=== PATIENT | female | born 1935 | race Caucasian/White ===

== ENCOUNTER 2019-05-03 10:04 | Inpatient (IN) | payer MEDICARE ==
--- NOTE | 2019-05-03 14:01 | History and Physical Report ---
History of Present Illness Date of examination: 05/03/19 Date of admission: 05/03/19 11:57 Chief complaint: UTI History of present illness: This is an 83-year-old female who initially was admitted to the [facility] unit for anxiety and depression. Hospitalist service was consulted to manage multiple comorbidities including Parkinson's disease, chronic kidney disease CAD, acute AL, diabetes, hyperlipidemia and thyroid disease. Patient reportedly at that time denied any complaints. However, during her inpatient stay at the [facility] unit patient was noted to have a urinalysis that revealed a UTI. Patient was treated with p.o. Bactrim but had further decline over the next 24 hours with confusion. Patient was then admitted to acute care in the hospital. Past History Past Medical History: diabetes, hyperlipidemia, renal failure, other (Parkinson's disease, hypothyroidism, anxiety, depression) Past Surgical History: hysterectomy, Other ((Nephrectomy right, Cancer of urethra s/p surg)) Social history: no significant social history Family history: no significant family history Medications and Allergies Allergies Allergy/AdvReac Type Severity Reaction Status Date / Time risperidone AdvReac Unknown Verified 05/02/19 17:43 Home Medications Medication Instructions Recorded Confirmed Last Taken Type Carbidopa/Levodopa ER 50-200 50 - 200 mg PO BID 04/29/19 04/29/19 Unknown History [Sinemet ER 50/200] Cholestyramine (with Sugar) 4 gm PO BID 04/29/19 04/29/19 Unknown History [Cholestyramine Packet] Flomax 0.4 mg PO HS 04/29/19 04/29/19 Unknown History Gabapentin 200 mg PO BID 04/29/19 04/29/19 Unknown History Hydrocodone-Acetamin 10-325/15 10 - 325 mg PO Q6H PRN 04/29/19 04/29/19 Unknown History Magnesium Amino Acid Chelate 250 mg PO HS 04/29/19 04/29/19 Unknown History [Magnesium] Multivitamin [One-Daily 1 each PO DAILY 04/29/19 04/29/19 Unknown History Multi-Vitamin] Oxybutynin [Ditropan] 5 mg PO TID 04/29/19 04/29/19 Unknown History Pantoprazole [Protonix] 40 mg PO QDAY 04/29/19 04/29/19 Unknown History Rosuvastatin Calcium [Crestor] 10 mg PO DAILY 04/29/19 04/29/19 Unknown History Synthroid 125 mcg PO QAM 04/29/19 04/29/19 Unknown History Venlafaxine HCl [Effexor Xr] 150 mg PO DAILY 04/29/19 04/29/19 Unknown History buPROPion SR [Wellbutrin Sr] 150 mg PO BID 04/29/19 04/29/19 Unknown History clonazePAM [KlonoPIN] 0.25 mg PO DAILY 04/29/19 04/29/19 Unknown History dilTIAZem [CarDIZEM] 30 mg PO Q6HR 04/29/19 04/29/19 Unknown History Review of Systems All systems: negative Exam - Constitutional General appearance: Present: no acute distress, well-nourished - EENT Eyes: Present: PERRL ENT: hearing intact, clear oral mucosa - Neck Neck: Present: supple, normal ROM - Respiratory Respiratory effort: normal Respiratory: bilateral: CTA - Cardiovascular Heart Sounds: Present: S1 & S2. Absent: rub, click - Extremities Extremities: pulses symmetrical, No edema Peripheral Pulses: within normal limits - Abdominal General gastrointestinal: Present: soft, non-tender, non-distended, normal bowel sounds Female genitourinary: Present: normal - Integumentary Integumentary: Present: clear, warm, dry - Musculoskeletal Musculoskeletal: gait normal, strength equal bilaterally - Psychiatric Psychiatric: appropriate mood/affect, intact judgment & insight - Neurologic Neurologic: CNII-XII intact, moves all extremities Assessment and Plan Assessment and plan: Sepsis. Patient meets criteria given tachycardia, leukopenia and diagnosis of UTI. We will start IV antibiotics and follow-up blood and urine cultures. Check lactic acid level. Acute hypoxic respiratory failure. Etiology may be secondary to above. Check chest x-ray. UTI. As above. Follow-up urine cultures. Diabetes mellitus type 2. Continue Accu-Cheks and sliding scale insulin. Hyperlipidemia. Continue statin. Hypothyroidism. Continue Synthroid. Check TSH levels. Parkinson's disease. Resume home medications.
[2019-05-03] MEDS ORDERED: ACETAMINOPHEN 325 MG TAB PO PRN (14:08)
[2019-05-03] MEDS ORDERED: DEXTROSE 50% IN WATER (25GM) 50 ML SYRINGE IV PRN (14:08)
[2019-05-03] MEDS ORDERED: ONDANSETRON 4 MG/2 ML INJ IV PRN (14:08)
[2019-05-03] MEDS: CEFEPIME/NS 2 GM/100 ML 2 GM/100 ML BAG IV SCH ×2 (15:47→22:23)
[2019-05-03] MEDS: INSULIN REGULAR, HUMAN 100 UNITS/1 ML SUB-Q SCH (16:07)
--- NOTE | 2019-05-03 16:18 | XRay Report ---
CHEST 1 VIEW 1532 hours INDICATION: hypoxia. COMPARISON: 05/03/2019 at 1021 hours FINDINGS: Support devices: None. Heart: Within normal limits. Lungs/Pleura: No acute air space or interstitial disease. Additional findings: None. IMPRESSION: No acute findings. No significant change since the exam earlier today. Signer Name: Tomi Dukes Jr, MD Signed: 05/03/2019 4:14 PM Workstation Name: [id number]
[2019-05-04] MEDS: INSULIN REGULAR, HUMAN 100 UNITS/1 ML SUB-Q SCH ×4 (01:40→17:11)
[2019-05-04 06:26] LABS: Hematocrit 27.5 % (30.3-42.9); Hemoglobin 9.5 gm/dl (10.1-14.3); Mean Corpuscular HGB Conc 34 % (30-34); Mean Corpuscular Volume 90 fl (79-97); Platelet Count 176 K/mm3 (140-440); Red Blood Count 3.05 M/mm3 (3.65-5.03); Red Cell Distribution Width 17.2 % (13.2-15.2)
[2019-05-04 06:45] LABS: Calcium 8.5 mg/dL (8.4-10.2)
[2019-05-04] MEDS ORDERED: NON-FORMULARY EACH (Clonidine 0.1 MG) PO PRN (08:38)
[2019-05-04 08:42] LABS: Total Cells Counted 100
[2019-05-04 08:43] LABS: Platelet Estimate Consistent w Auto; RBC Morphology Normal
[2019-05-04] MEDS ORDERED: cloNIDine 0.1 MG TAB PO PRN (09:18)
[2019-05-04] MEDS: PANTOPRAZOLE 40 MG TAB PO SCH (09:28)
[2019-05-04] MEDS: dilTIAZem 30 MG TAB PO SCH ×3 (09:28→23:00)
[2019-05-04] MEDS: GABAPENTIN 100 MG CAP PO SCH ×2 (09:28→21:13)
[2019-05-04] MEDS: ENOXAPARIN 30 MG/0.3 ML INJ SUB-Q SCH (09:29)
[2019-05-04] MEDS: MULTIVITAMINS,THER W-MINERALS TAB PO SCH (09:42)
[2019-05-04] MEDS: CEFEPIME/NS 2 GM/100 ML 2 GM/100 ML BAG IV SCH (09:42)
[2019-05-04] MEDS: QUEtiapine 25 MG TAB PO SCH (09:42)
[2019-05-04] MEDS ORDERED: VENLAFAXINE HCL 150 MG PO SCH (10:00)
[2019-05-04] MEDS ORDERED: NON-FORMULARY EACH (Multivitamin [One-Daily Multi-Vitamin] 1 EACH) PO SCH (10:00)
[2019-05-04] MEDS ORDERED: SEROQUEL 50 MG PO SCH (10:00)
[2019-05-04] MEDS ORDERED: SYNTHROID 125 MCG PO SCH (10:00)
--- NOTE | 2019-05-04 12:42 | Progress Note ---
Assessment and Plan Assessment and plan: Sepsis. Patient meets criteria given tachycardia, leukopenia and diagnosis of UTI. We will start IV antibiotics and follow-up blood and urine cultures. Check lactic acid level. Acute hypoxic respiratory failure. Etiology may be secondary to above. Check chest x-ray. UTI. As above. Follow-up urine cultures. Diabetes mellitus type 2. Continue Accu-Cheks and sliding scale insulin. Hyperlipidemia. Continue statin. Hypothyroidism. Continue Synthroid. Check TSH levels. Parkinson's disease. Resume home medications. History Interval history: No new issues overnight Hospitalist Physical - Constitutional Vitals: Temp Pulse Resp BP Pulse Ox 98.8 F 102 H 20 180/58 93 05/04/19 11:38 05/04/19 11:38 05/04/19 11:38 05/04/19 11:38 05/04/19 11:38 General appearance: Present: no acute distress, well-nourished - EENT Eyes: Present: PERRL, EOM intact ENT: hearing intact, clear oral mucosa, dentition normal - Neck Neck: Present: supple, normal ROM - Respiratory Respiratory effort: normal Respiratory: bilateral: CTA - Cardiovascular Rhythm: regular Heart Sounds: Present: S1 & S2. Absent: gallop, rub - Extremities Extremities: no ischemia, No edema, Full ROM - Abdominal General gastrointestinal: soft, non-tender, non-distended, normal bowel sounds - Integumentary Integumentary: Present: clear, warm, dry - Neurologic Neurologic: CNII-XII intact, moves all extremities Results - Labs CBC & Chem 7: 05/04/19 05:17 05/04/19 05:17 Labs: Laboratory Last Values WBC 3.4 K/mm3 (4.5-11.0) L 05/04/19 05:17 RBC 3.05 M/mm3 (3.65-5.03) L 05/04/19 05:17 Hgb 9.5 gm/dl (10.1-14.3) L 05/04/19 05:17 Hct 27.5 % (30.3-42.9) L 05/04/19 05:17 MCV 90 fl (79-97) 05/04/19 05:17 MCH 31 pg (28-32) 05/04/19 05:17 MCHC 34 % (30-34) 05/04/19 05:17 RDW 17.2 % (13.2-15.2) H 05/04/19 05:17 Plt Count 176 K/mm3 (140-440) 05/04/19 05:17 Add Manual Diff Complete 05/04/19 05:17 Total Counted 100 05/04/19 05:17 Seg Neuts % (Manual) 75.0 % (40.0-70.0) H 05/04/19 05:17 Band Neutrophils % 0 % 05/04/19 05:17 Lymphocytes % (Manual) 12.0 % (13.4-35.0) L 05/04/19 05:17 Reactive Lymphs % (Man) 0 % 05/04/19 05:17 Monocytes % (Manual) 7.0 % (0.0-7.3) 05/04/19 05:17 Eosinophils % (Manual) 5.0 % (0.0-4.3) H 05/04/19 05:17 Basophils % (Manual) 1.0 % (0.0-1.8) 05/04/19 05:17 Metamyelocytes % 0 % 05/04/19 05:17 Myelocytes % 0 % 05/04/19 05:17 Promyelocytes % 0 % 05/04/19 05:17 Blast Cells % 0 % 05/04/19 05:17 Nucleated RBC % Not Reportable 05/04/19 05:17 Seg Neutrophils # Man 2.6 K/mm3 (1.8-7.7) 05/04/19 05:17 Band Neutrophils # 0.0 K/mm3 05/04/19 05:17 Lymphocytes # (Manual) 0.4 K/mm3 (1.2-5.4) L 05/04/19 05:17 Abs React Lymphs (Man) 0.0 K/mm3 05/04/19 05:17 Monocytes # (Manual) 0.2 K/mm3 (0.0-0.8) 05/04/19 05:17 Eosinophils # (Manual) 0.2 K/mm3 (0.0-0.4) 05/04/19 05:17 Basophils # (Manual) 0.0 K/mm3 (0.0-0.1) 05/04/19 05:17 Metamyelocytes # 0.0 K/mm3 05/04/19 05:17 Myelocytes # 0.0 K/mm3 05/04/19 05:17 Promyelocytes # 0.0 K/mm3 05/04/19 05:17 Blast Cells # 0.0 K/mm3 05/04/19 05:17 WBC Morphology Not Reportable 05/04/19 05:17 Hypersegmented Neuts Not Reportable 05/04/19 05:17 Hyposegmented Neuts Not Reportable 05/04/19 05:17 Hypogranular Neuts Not Reportable 05/04/19 05:17 Smudge Cells Not Reportable 05/04/19 05:17 Toxic Granulation Not Reportable 05/04/19 05:17 Toxic Vacuolation Not Reportable 05/04/19 05:17 Dohle Bodies Not Reportable 05/04/19 05:17 Pelger-Huet Anomaly Not Reportable 05/04/19 05:17 Blue Rods Not Reportable 05/04/19 05:17 Platelet Estimate Consistent w auto 05/04/19 05:17 Clumped Platelets Not Reportable 05/04/19 05:17 Plt Clumps, EDTA Not Reportable 05/04/19 05:17 Large Platelets Not Reportable 05/04/19 05:17 Giant Platelets Not Reportable 05/04/19 05:17 Platelet Satelliting Not Reportable 05/04/19 05:17 Plt Morphology Comment Not Reportable 05/04/19 05:17 RBC Morphology Normal 05/04/19 05:17 Dimorphic RBCs Not Reportable 05/04/19 05:17 Polychromasia Not Reportable 05/04/19 05:17 Hypochromasia Not Reportable 05/04/19 05:17 Poikilocytosis Not Reportable 05/04/19 05:17 Anisocytosis Not Reportable 05/04/19 05:17 Microcytosis Not Reportable 05/04/19 05:17 Macrocytosis Not Reportable 05/04/19 05:17 Spherocytes Not Reportable 05/04/19 05:17 Pappenheimer Bodies Not Reportable 05/04/19 05:17 Sickle Cells Not Reportable 05/04/19 05:17 Target Cells Not Reportable 05/04/19 05:17 Tear Drop Cells Not Reportable 05/04/19 05:17 Ovalocytes Not Reportable 05/04/19 05:17 Helmet Cells Not Reportable 05/04/19 05:17 Webb-Watchung Bodies Not Reportable 05/04/19 05:17 Trade Rings Not Reportable 05/04/19 05:17 Marly Cells Not Reportable 05/04/19 05:17 Bite Cells Not Reportable 05/04/19 05:17 Crenated Cell Not Reportable 05/04/19 05:17 Elliptocytes Not Reportable 05/04/19 05:17 Acanthocytes (Spur) Not Reportable 05/04/19 05:17 Rouleaux Not Reportable 05/04/19 05:17 Hemoglobin C Crystals Not Reportable 05/04/19 05:17 Schistocytes Not Reportable 05/04/19 05:17 Malaria parasites Not Reportable 05/04/19 05:17 Leo Bodies Not Reportable 05/04/19 05:17 Hem Pathologist Commnt No 05/04/19 05:17 Sodium 140 mmol/L (137-145) 05/04/19 05:17 Potassium 4.7 mmol/L (3.6-5.0) 05/04/19 05:17 Chloride 104.2 mmol/L (98-107) 05/04/19 05:17 Carbon Dioxide 22 mmol/L (22-30) 05/04/19 05:17 Anion Gap 19 mmol/L 05/04/19 05:17 BUN 21 mg/dL (7-17) H 05/04/19 05:17 Creatinine 2.4 mg/dL (0.7-1.2) H 05/04/19 05:17 Estimated GFR 19 ml/min 05/04/19 05:17 BUN/Creatinine Ratio 9 % 05/04/19 05:17 Glucose 142 mg/dL (65-100) H 05/04/19 05:17 POC Glucose 145 (70-105) H 05/04/19 12:14 Calcium 8.5 mg/dL (8.4-10.2) 05/04/19 05:17 Blood Type O POSITIVE 05/03/19 15:12 Antibody Screen Positive 05/03/19 15:12 Active Medications - Current Medications Current Medications: Generic Name Dose Route Start Last Admin Trade Name Freq PRN Reason Stop Dose Admin Acetaminophen 650 mg 05/03/19 14:08 Tylenol PO Q4H PRN Pain MILD(1-3)/Fever >100.5/BECERRA Atorvastatin Calcium 10 mg 05/04/19 22:00 Atorvastatin PO QHS [facility] Bupropion HCl 150 mg 05/04/19 10:00 Wellbutrin Sr PO BID [facility] Cholestyramine Resin 4 gm 05/04/19 12:00 Questran PO 0000,1200 [facility] Clonidine HCl 0.1 mg 05/04/19 09:18 05/04/19 09:28 Catapres PO 0.1 mg Q4HR PRN Administration Hypertension Dextrose 50 ml 05/03/19 14:08 D50w (25gm) Syringe IV Q30MIN PRN Hypoglycemia Protocol Diltiazem HCl 30 mg 05/04/19 10:00 05/04/19 09:28 Cardizem PO 30 mg Q6H JONNATHAN Administration Enoxaparin Sodium 30 mg 05/04/19 10:00 05/04/19 09:29 Enoxaparin SUB-Q 30 mg QDAY [facility] Administration Gabapentin 200 mg 05/04/19 10:00 05/04/19 09:28 Gabapentin PO 200 mg BID [facility] Administration Cefepime HCl 2 gm in 100 mls @ 200 mls/hr 05/04/19 10:00 05/04/19 09:42 Cefepime/Ns 2 Gm/100 Ml IV 200 mls/hr Q24HR [facility] Administration Protocol Insulin Human Regular 0 units 05/03/19 16:30 05/04/19 08:21 Humulin R SUB-Q Not Given ACHS [facility] Protocol Levothyroxine Sodium 125 mcg 05/05/19 06:00 Synthroid PO DAILY@0600 [facility] Miscellaneous Medication 250 mg 05/04/19 22:00 Magnesium Amino Acid Chelate [Magnesium] PO [facility] Multivitamins/Minerals 1 each 05/04/19 10:00 05/04/19 09:42 Theragran-M Tab PO 1 each QDAY [facility] Administration Ondansetron HCl 4 mg 05/03/19 14:08 Zofran IV Q8H PRN Nausea And Vomiting Oxybutynin Chloride 5 mg 05/04/19 14:00 Ditropan PO TID [facility] Pantoprazole Sodium 40 mg 05/04/19 10:00 05/04/19 09:28 Protonix PO 40 mg QDAY [facility] Administration Quetiapine Fumarate 50 mg 05/04/19 10:00 05/04/19 09:42 Seroquel PO 50 mg DAILY JONNATHAN Administration Sodium Chloride 10 ml 05/03/19 22:00 05/04/19 09:29 Sodium Chloride Flush Syringe 10 Ml IV 10 ml BID JONNATHAN Administration Sodium Chloride 10 ml 05/03/19 14:08 Sodium Chloride Flush Syringe 10 Ml IV PRN PRN LINE FLUSH Tamsulosin HCl 0.4 mg 05/04/19 22:00 Flomax PO QHS JONNATHAN Venlafaxine HCl 150 mg 05/04/19 10:00 Effexor Xr PO QDAY JONNATHAN Nutrition/Malnutrition Assess - Dietary Evaluation Nutrition/Malnutrition Findings: Nutrition Notes Start: 05/04/19 10:20 Freq: Status: Active Protocol: Document 05/04/19 10:20 CW (Rec: 05/04/19 10:36 CW [id number]) Co-Sign 05/04/19 10:20 LP Nutrition Notes Need for Assessment generated from: MD Order,MST Initial or Follow up Assessment Current Diagnosis CKD(stage I-IV),Coronary Artery Disease,Diabetes, Hyperlipidemia Other Pertinent Diagnosis UTI, OK, Hypothyroidism Current Diet Consistent Carb Labs/Tests BUN 21 Cr 2.4 BG 142 Pertinent Medications Reviewed Height 5 ft 6 in Weight 64.6 kg Usual Body Weight 64.1 kg [place] Body Weight (kg) 59.09 BMI 22.9 Intake Prior to Admission Good Weight Status Appropriate Subjective/Other Information MD consult for MST screening. Calvin score of 18. Pt reports not having any swallowing/ chewing difficulties, wt changes, N/V/D, and having a good appetite. Approxiamtely 50% of dinner eaten on 2019 and 0% of breakfast on D/T dislike of food. However, pt could not state food preferences. Pt reported liking the Ensure supplement and drinking 100% of it. Suggest changing ONS to BID to increase PO intake Burn Absent Trauma Absent GI Symptoms None Current % PO Poor (25-49%) Minimum of two criteria No Reduced Check Pilot Strength Measurably Reduced (severe) #1 Nutrition Diagnosis Inadequate oral intake Etiology chronic illness and advanced age As Evidenced by Signs and Symptoms pt only consuming 1 Glucerna during breakfast Is patient on ventilator? No Is Patient Ambulatory and/or Out of Bed No REE-([facility]-confined to bed) 1360.296 Calculation Used for Recommendations [facility] Additional Notes Protein needs: 65 - 78 g (1 - 1.2 g/ kgBW) Fluid needs: 1 ml/kcal Nutrition Intervention Change Diet Order: Change to Cardiac/ Consistent CHO diet Add Supplement/Snack (indicate name/kcal Glucerna BID /protein ) Provides kCal: 440 Provides Protein (gm) 20 Goal #1 Meet at least 75% of pro/kcal needs via PO Anticipated Discharge Needs: Cardiac/ Consistent CHO diet Follow-Up By: 05/07/19 Additional Comments FU ONS tolerance and PO intake
[2019-05-04] MEDS: OXYBUTYNIN 5 MG TAB PO SCH ×2 (14:40→21:13)
[2019-05-04] MEDS: buPROPion SR 150 MG TAB PO SCH ×2 (14:40→22:00)
[2019-05-04] MEDS: CHOLESTYRAMINE (WITH SUGAR) 4 GM PACKET PO SCH (14:40)
[2019-05-04] MEDS: VENLAFAXINE XR 75 MG CAP PO SCH (14:40)
[2019-05-04] MEDS: SODIUM CHLORIDE 0.9% 1000 ML 1,000 ML IV SCH ×2 (15:29→23:00)
--- NOTE | 2019-05-04 16:49 | Cat Scan Report ---
CT abdomen pelvis wo con INDICATION: UTI, ARF. TECHNIQUE: All CT scans at this location are performed using the following dose modulation technique: Automated exposure control. CONTRAST: None. COMPARISON: None available. CT ABDOMEN: Small right basilar effusion with associated atelectasis. Evaluation of the parenchymal organs demonstrates no suspicious parenchymal lesion. The right kidney has been removed previously. Mild left renal scarring is noted. Negative for abdominal mass, fluid or inflammation. The bowel is not dilated or thickened. CT PELVIS: Moderate bladder distention. Negative for wall thickening. No pelvic mass, fluid or inflammation. Status post previous hysterectomy. Colonic stool is moderate. IMPRESSION: 1. Gallbladder distention without wall thickening. 2. Small right basilar effusion with associated atelectasis. 3. Solitary left kidney with mild scarring. 4. Moderate colonic stool. Signer Name: Mohit Almaraz MD Signed: 05/04/2019 4:45 PM Workstation Name: [id number]
--- NOTE | 2019-05-04 17:09 | Consultation ---
History of Present Illness - History of Present Illness History is limited patient is a poor historian and has some confusion 83-year-old lady recently admitted for depression transferred to psych given worsening renal function in addition has recently been on Bactrim. 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 She has no edema has no shortness of breath she does admit to some diarrhea associated nausea no recent weight loss Past History Past Medical History: diabetes, hyperlipidemia, renal failure, other (Parkinson's disease, hypothyroidism, anxiety, depression) Past Surgical History: hysterectomy, Other ((Nephrectomy right, Cancer of urethra s/p surg)) Social history: no significant social history Family history: no significant family history Medications and Allergies Allergies Allergy/AdvReac Type Severity Reaction Status Date / Time risperidone AdvReac Unknown Verified 05/02/19 17:43 Home Medications Medication Instructions Recorded Confirmed Last Taken Type Carbidopa/Levodopa ER 50-200 50 - 200 mg PO BID 04/29/19 05/03/19 Unknown History [Sinemet ER 50/200] Cholestyramine (with Sugar) 4 gm PO BID 04/29/19 05/03/19 Unknown History [Cholestyramine Packet] Flomax 0.4 mg PO HS 04/29/19 05/03/19 Unknown History Gabapentin 200 mg PO BID 04/29/19 05/03/19 Unknown History Magnesium Amino Acid Chelate 250 mg PO HS 04/29/19 04/29/19 Unknown History [Magnesium] Multivitamin [One-Daily 1 each PO DAILY 04/29/19 05/03/19 Unknown History Multi-Vitamin] Oxybutynin [Ditropan] 5 mg PO TID 04/29/19 05/03/19 Unknown History Pantoprazole [Protonix] 40 mg PO QDAY 04/29/19 05/03/19 Unknown History Synthroid 125 mcg PO QAM 04/29/19 05/03/19 Unknown History Venlafaxine HCl [Effexor Xr] 150 mg PO DAILY 04/29/19 05/03/19 Unknown History buPROPion SR [Wellbutrin Sr] 150 mg PO BID 04/29/19 05/03/19 Unknown History clonazePAM [KlonoPIN] 0.25 mg PO DAILY 04/29/19 05/03/19 Unknown History dilTIAZem [CarDIZEM] 30 mg PO Q6HR 04/29/19 05/03/19 Unknown History Bactrim DS TAB 1 tab PO BID 05/03/19 05/03/19 Unknown History Fish Oil 2,000 mg PO BID 05/03/19 05/03/19 Unknown History Lipitor 10 mg PO QHS 05/03/19 05/03/19 Unknown History Melatonin 5 mg PO QHS PRN 05/03/19 05/03/19 Unknown History Phenazopyridine [Pyridium] 100 mg PO BID 05/03/19 05/03/19 Unknown History SEROquel 50 mg PO DAILY 05/03/19 05/03/19 Unknown History cloNIDine 0.1 mg PO Q4HR PRN 05/03/19 05/03/19 Unknown History haloperidoL [Haldol] 5 mg PO Q6H PRN 05/03/19 05/03/19 Unknown History Active Meds: Active Medications Acetaminophen (Tylenol) 650 mg PO Q4H PRN PRN Reason: Pain MILD(1-3)/Fever >100.5/BECERRA Atorvastatin Calcium (Atorvastatin) 10 mg PO QHS [facility] Bupropion HCl (Wellbutrin Sr) 150 mg PO BID [facility] Last Admin: 05/04/19 14:40 Dose: 150 mg Documented by: Cholestyramine Resin (Questran) 4 gm PO 0000,1200 [facility] Last Admin: 05/04/19 14:40 Dose: 4 gm Documented by: Clonidine HCl (Catapres) 0.1 mg PO Q4HR PRN PRN Reason: Hypertension Last Admin: 05/04/19 09:28 Dose: 0.1 mg Documented by: Dextrose (D50w (25gm) Syringe) 50 ml IV Q30MIN PRN; Protocol PRN Reason: Hypoglycemia Diltiazem HCl (Cardizem) 30 mg PO Q6H [facility] Last Admin: 05/04/19 16:59 Dose: 30 mg Documented by: Enoxaparin Sodium (Enoxaparin) 30 mg SUB-Q QDAY [facility] Last Admin: 05/04/19 09:29 Dose: 30 mg Documented by: Gabapentin (Gabapentin) 200 mg PO BID [facility] Last Admin: 05/04/19 09:28 Dose: 200 mg Documented by: Cefepime HCl (Cefepime/Ns 2 Gm/100 Ml) 2 gm in 100 mls @ 200 mls/hr IV Q24HR [facility]; Protocol Last Admin: 05/04/19 09:42 Dose: 200 mls/hr Documented by: Sodium Chloride (Nacl 0.9% 1000 Ml) 1,000 mls @ 125 mls/hr IV DIRECT [facility] Last Admin: 05/04/19 15:29 Dose: 125 mls/hr Documented by: Insulin Human Regular (Humulin R) 0 units SUB-Q ACHS [facility]; Protocol Last Admin: 05/04/19 14:39 Dose: Not Given Documented by: Levothyroxine Sodium (Synthroid) 125 mcg PO DAILY@0600 [facility] Miscellaneous Medication (Magnesium Amino Acid Chelate [Magnesium]) 250 mg PO HS [facility] Multivitamins/Minerals (Theragran-M Tab) 1 each PO QDAY [facility] Last Admin: 05/04/19 09:42 Dose: 1 each Documented by: Ondansetron HCl (Zofran) 4 mg IV Q8H PRN PRN Reason: Nausea And Vomiting Oxybutynin Chloride (Ditropan) 5 mg PO TID [facility] Last Admin: 05/04/19 14:40 Dose: 5 mg Documented by: Pantoprazole Sodium (Protonix) 40 mg PO QDAY [facility] Last Admin: 05/04/19 09:28 Dose: 40 mg Documented by: Phenazopyridine HCl (Pyridium) 100 mg PO BID [facility] Quetiapine Fumarate (Seroquel) 50 mg PO DAILY [facility] Last Admin: 05/04/19 09:42 Dose: 50 mg Documented by: Sodium Chloride (Sodium Chloride Flush Syringe 10 Ml) 10 ml IV BID [facility] Last Admin: 05/04/19 09:29 Dose: 10 ml Documented by: Sodium Chloride (Sodium Chloride Flush Syringe 10 Ml) 10 ml IV PRN PRN PRN Reason: LINE FLUSH Tamsulosin HCl (Flomax) 0.4 mg PO QHS [facility] Venlafaxine HCl (Effexor Xr) 150 mg PO QDAY [facility] Last Admin: 05/04/19 14:40 Dose: 150 mg Documented by: Review of Systems Constitutional: anorexia, fatigue, no weight loss, no weight gain, no fever Ears, nose, mouth and throat: no ear pain, no ear discharge Cardiovascular: no chest pain, no orthopnea, no palpitations Respiratory: no cough, no cough with sputum Gastrointestinal: nausea, diarrhea, no abdominal pain Musculoskeletal: no neck stiffness, no neck pain Integumentary: no deferred, no rash Neurological: no head injury, no transient paralysis Psychiatric: no anxiety, no memory loss Endocrine: no cold intolerance, no heat intolerance Exam - Vital Signs Vital signs: Vital Signs Temp Pulse Resp BP Pulse Ox 98.4 F 90 16 150/57 96 05/03/19 15:38 05/03/19 15:38 05/03/19 15:38 05/03/19 15:38 05/03/19 15:38 - General Appearance General appearance: well-developed, anxious EENT: ATNC, PERRL Neck: Present: neck supple Respiratory: Clear to Ascultation Heart: regular, S1S2 Gastrointestinal: Present: normal, normoactive bowel sounds Integumentary: no rash Neurologic: confused Musculoskeletal: Present: deferred Psychiatric: agitated, cooperative, pressured speech Results - Lab Results 05/04/19 05:17 05/04/19 05:17 Most recent lab results Calcium 8.5 mg/dL (8.4-10.2) 05/04/19 05:17 - Image Kidney/bladder ultrasound: other (review chest x-ray with some interstitial opacities query chronic) Assessment and Plan - Patient Problems (1) Acute kidney injury Current Visit: Yes Status: Acute Plan to address problem: Acute kidney injury Baseline creatinine unknown admission creatinine 1.6, and creatinine 2.4 CT reviewed with single kidney Etiology appears secondary to volume depletion Was also on Bactrim which can cause elevated creatinine Continue fluid hydration avoid nephrotoxic medication (2) Metabolic acidosis Current Visit: Yes Status: Acute Plan to address problem: Metabolic acidosis secondary to acute kidney injury continue fluid hydration (3) Anemia Current Visit: Yes Status: Acute Plan to address problem: Moderate anemia hemoglobin 9.6 gram per DL Monitor for bleeding Monitor CBC (4) Hypertension Current Visit: Yes Status: Acute Qualifiers: Hypertension type: essential hypertension Qualified Code(s): I10 - Essential (primary) hypertension Plan to address problem: Hypertension Avoid nephrotoxic medications Resume blood pressure medications
[2019-05-04] MEDS: TAMSULOSIN 0.4 MG CAP PO SCH (21:14)
[2019-05-04] MEDS ORDERED: MAGNESIUM AMINO ACID CHELATE PO SCH (22:00)
[2019-05-04] MEDS ORDERED: LIPITOR 10 MG PO SCH (22:00)
[2019-05-04] MEDS ORDERED: NON-FORMULARY EACH (Flomax 0.4 MG) PO SCH (22:00)
[2019-05-04] MEDS: PHENAZOPYRIDINE 100 MG TAB PO SCH (23:00)
[2019-05-05] MEDS: INSULIN REGULAR, HUMAN 100 UNITS/1 ML SUB-Q SCH ×5 (05:03→22:09)
[2019-05-05] MEDS: CHOLESTYRAMINE (WITH SUGAR) 4 GM PACKET PO SCH ×2 (05:04→12:00)
[2019-05-05 06:30] LABS: Calcium 8.4 mg/dL (8.4-10.2)
[2019-05-05] MEDS: LEVOTHYROXINE 125 MCG TAB PO SCH (06:44)
[2019-05-05] MEDS: SODIUM CHLORIDE 0.9% 1000 ML 1,000 ML IV SCH (06:44)
[2019-05-05] MEDS: GABAPENTIN 100 MG CAP PO SCH ×2 (11:15→21:40)
[2019-05-05] MEDS: ENOXAPARIN 30 MG/0.3 ML INJ SUB-Q SCH (11:15)
[2019-05-05] MEDS: PANTOPRAZOLE 40 MG TAB PO SCH (11:16)
[2019-05-05] MEDS: MULTIVITAMINS,THER W-MINERALS TAB PO SCH (11:16)
[2019-05-05] MEDS: QUEtiapine 25 MG TAB PO SCH (11:16)
[2019-05-05] MEDS: buPROPion SR 150 MG TAB PO SCH ×2 (11:17→22:03)
[2019-05-05] MEDS: VENLAFAXINE XR 75 MG CAP PO SCH (11:18)
[2019-05-05] MEDS: CEFEPIME/NS 2 GM/100 ML 2 GM/100 ML BAG IV SCH (11:18)
[2019-05-05] MEDS: PHENAZOPYRIDINE 100 MG TAB PO SCH ×2 (11:18→22:02)
[2019-05-05] MEDS: OXYBUTYNIN 5 MG TAB PO SCH ×3 (11:19→21:40)
[2019-05-05] MEDS: dilTIAZem 30 MG TAB PO SCH ×4 (11:20→22:40)
--- NOTE | 2019-05-05 12:12 | Progress Note ---
Assessment and Plan Assessment and plan: Sepsis. Patient meets criteria given tachycardia, leukopenia and diagnosis of UTI. We will start IV antibiotics and follow-up blood and urine cultures. Check lactic acid level. Acute hypoxic respiratory failure. Etiology may be secondary to above. Check chest x-ray. UTI. As above. Follow-up urine cultures. Diabetes mellitus type 2. Continue Accu-Cheks and sliding scale insulin. Hyperlipidemia. Continue statin. Hypothyroidism. Continue Synthroid. Check TSH levels. Parkinson's disease. Resume home medications. History Interval history: No new issues overnight Hospitalist Physical - Constitutional Vitals: Temp Pulse Resp BP Pulse Ox 99.4 F 83 16 177/52 93 05/05/19 11:51 05/05/19 11:51 05/05/19 11:51 05/05/19 11:51 05/05/19 11:51 General appearance: Present: no acute distress, well-nourished - EENT Eyes: Present: PERRL, EOM intact ENT: hearing intact, clear oral mucosa, dentition normal - Neck Neck: Present: supple, normal ROM - Respiratory Respiratory effort: normal Respiratory: bilateral: CTA - Cardiovascular Rhythm: regular Heart Sounds: Present: S1 & S2. Absent: gallop, rub - Extremities Extremities: no ischemia, No edema, Full ROM - Abdominal General gastrointestinal: soft, non-tender, non-distended, normal bowel sounds - Integumentary Integumentary: Present: clear, warm, dry - Neurologic Neurologic: CNII-XII intact, moves all extremities Results - Labs CBC & Chem 7: 05/04/19 05:17 05/05/19 04:25 Labs: Laboratory Last Values WBC 3.4 K/mm3 (4.5-11.0) L 05/04/19 05:17 RBC 3.05 M/mm3 (3.65-5.03) L 05/04/19 05:17 Hgb 9.5 gm/dl (10.1-14.3) L 05/04/19 05:17 Hct 27.5 % (30.3-42.9) L 05/04/19 05:17 MCV 90 fl (79-97) 05/04/19 05:17 MCH 31 pg (28-32) 05/04/19 05:17 MCHC 34 % (30-34) 05/04/19 05:17 RDW 17.2 % (13.2-15.2) H 05/04/19 05:17 Plt Count 176 K/mm3 (140-440) 05/04/19 05:17 Add Manual Diff Complete 05/04/19 05:17 Total Counted 100 05/04/19 05:17 Seg Neuts % (Manual) 75.0 % (40.0-70.0) H 05/04/19 05:17 Band Neutrophils % 0 % 05/04/19 05:17 Lymphocytes % (Manual) 12.0 % (13.4-35.0) L 05/04/19 05:17 Reactive Lymphs % (Man) 0 % 05/04/19 05:17 Monocytes % (Manual) 7.0 % (0.0-7.3) 05/04/19 05:17 Eosinophils % (Manual) 5.0 % (0.0-4.3) H 05/04/19 05:17 Basophils % (Manual) 1.0 % (0.0-1.8) 05/04/19 05:17 Metamyelocytes % 0 % 05/04/19 05:17 Myelocytes % 0 % 05/04/19 05:17 Promyelocytes % 0 % 05/04/19 05:17 Blast Cells % 0 % 05/04/19 05:17 Nucleated RBC % Not Reportable 05/04/19 05:17 Seg Neutrophils # Man 2.6 K/mm3 (1.8-7.7) 05/04/19 05:17 Band Neutrophils # 0.0 K/mm3 05/04/19 05:17 Lymphocytes # (Manual) 0.4 K/mm3 (1.2-5.4) L 05/04/19 05:17 Abs React Lymphs (Man) 0.0 K/mm3 05/04/19 05:17 Monocytes # (Manual) 0.2 K/mm3 (0.0-0.8) 05/04/19 05:17 Eosinophils # (Manual) 0.2 K/mm3 (0.0-0.4) 05/04/19 05:17 Basophils # (Manual) 0.0 K/mm3 (0.0-0.1) 05/04/19 05:17 Metamyelocytes # 0.0 K/mm3 05/04/19 05:17 Myelocytes # 0.0 K/mm3 05/04/19 05:17 Promyelocytes # 0.0 K/mm3 05/04/19 05:17 Blast Cells # 0.0 K/mm3 05/04/19 05:17 WBC Morphology Not Reportable 05/04/19 05:17 Hypersegmented Neuts Not Reportable 05/04/19 05:17 Hyposegmented Neuts Not Reportable 05/04/19 05:17 Hypogranular Neuts Not Reportable 05/04/19 05:17 Smudge Cells Not Reportable 05/04/19 05:17 Toxic Granulation Not Reportable 05/04/19 05:17 Toxic Vacuolation Not Reportable 05/04/19 05:17 Dohle Bodies Not Reportable 05/04/19 05:17 Pelger-Huet Anomaly Not Reportable 05/04/19 05:17 Blue Rods Not Reportable 05/04/19 05:17 Platelet Estimate Consistent w auto 05/04/19 05:17 Clumped Platelets Not Reportable 05/04/19 05:17 Plt Clumps, EDTA Not Reportable 05/04/19 05:17 Large Platelets Not Reportable 05/04/19 05:17 Giant Platelets Not Reportable 05/04/19 05:17 Platelet Satelliting Not Reportable 05/04/19 05:17 Plt Morphology Comment Not Reportable 05/04/19 05:17 RBC Morphology Normal 05/04/19 05:17 Dimorphic RBCs Not Reportable 05/04/19 05:17 Polychromasia Not Reportable 05/04/19 05:17 Hypochromasia Not Reportable 05/04/19 05:17 Poikilocytosis Not Reportable 05/04/19 05:17 Anisocytosis Not Reportable 05/04/19 05:17 Microcytosis Not Reportable 05/04/19 05:17 Macrocytosis Not Reportable 05/04/19 05:17 Spherocytes Not Reportable 05/04/19 05:17 Pappenheimer Bodies Not Reportable 05/04/19 05:17 Sickle Cells Not Reportable 05/04/19 05:17 Target Cells Not Reportable 05/04/19 05:17 Tear Drop Cells Not Reportable 05/04/19 05:17 Ovalocytes Not Reportable 05/04/19 05:17 Helmet Cells Not Reportable 05/04/19 05:17 [place] Bodies Not Reportable 05/04/19 05:17 [place] Rings Not Reportable 05/04/19 05:17 Marly Cells Not Reportable 05/04/19 05:17 Bite Cells Not Reportable 05/04/19 05:17 Crenated Cell Not Reportable 05/04/19 05:17 Elliptocytes Not Reportable 05/04/19 05:17 Acanthocytes (Spur) Not Reportable 05/04/19 05:17 Rouleaux Not Reportable 05/04/19 05:17 Hemoglobin C Crystals Not Reportable 05/04/19 05:17 Schistocytes Not Reportable 05/04/19 05:17 Malaria parasites Not Reportable 05/04/19 05:17 Leo Bodies Not Reportable 05/04/19 05:17 Hem Pathologist Commnt No 05/04/19 05:17 Sodium 140 mmol/L (137-145) 05/05/19 04:25 Potassium 4.5 mmol/L (3.6-5.0) 05/05/19 04:25 Chloride 105.8 mmol/L (98-107) 05/05/19 04:25 Carbon Dioxide 23 mmol/L (22-30) 05/05/19 04:25 Anion Gap 16 mmol/L 05/05/19 04:25 BUN 17 mg/dL (7-17) 05/05/19 04:25 Creatinine 1.9 mg/dL (0.7-1.2) H 05/05/19 04:25 Estimated GFR 25 ml/min 05/05/19 04:25 BUN/Creatinine Ratio 9 % 05/05/19 04:25 Glucose 107 mg/dL (65-100) H 05/05/19 04:25 POC Glucose 117 (70-105) H 05/04/19 22:08 Calcium 8.4 mg/dL (8.4-10.2) 05/05/19 04:25 Magnesium 1.60 mg/dL (1.7-2.3) L 05/05/19 04:35 Blood Type O POSITIVE 05/03/19 15:12 Antibody Screen Positive 05/03/19 15:12 Active Medications - Current Medications Current Medications: Generic Name Dose Route Start Last Admin Trade Name Freq PRN Reason Stop Dose Admin Acetaminophen 650 mg 02/06/20 14:08 Tylenol PO Q4H PRN Pain MILD(1-3)/Fever >100.5/BECERRA Atorvastatin Calcium 10 mg 05/04/19 22:00 05/04/19 21:14 Atorvastatin PO 10 mg QHS JONNATHAN Administration Bupropion HCl 150 mg 05/04/19 10:00 05/05/19 11:17 Wellbutrin Sr PO 150 mg BID JONNATHAN Administration Cholestyramine Resin 4 gm 05/04/19 12:00 05/05/19 05:04 Questran PO Not Given 0000,1200 JONNATHAN Clonidine HCl 0.1 mg 05/04/19 09:18 05/04/19 09:28 Catapres PO 0.1 mg Q4HR PRN Administration Hypertension Dextrose 50 ml 05/03/19 14:08 D50w (25gm) Syringe IV Q30MIN PRN Hypoglycemia Protocol Diltiazem HCl 30 mg 05/04/19 10:00 05/05/19 11:20 Cardizem PO 30 mg Q6H JONNATHAN Administration Enoxaparin Sodium 30 mg 05/04/19 10:00 05/05/19 11:15 Enoxaparin SUB-Q 30 mg QDAY JONNATHAN Administration Gabapentin 200 mg 05/04/19 10:00 05/05/19 11:15 Gabapentin PO 200 mg BID JONNATHAN Administration Cefepime HCl 2 gm in 100 mls @ 200 mls/hr 05/04/19 10:00 05/05/19 11:18 Cefepime/Ns 2 Gm/100 Ml IV 200 mls/hr Q24HR JONNATHAN Administration Protocol Sodium Chloride 1,000 mls @ 125 mls/hr 05/04/19 14:15 05/05/19 06:44 Nacl 0.9% 1000 Ml IV 125 mls/hr DIRECT JONNATHAN Administration Insulin Human Regular 0 units 05/03/19 16:30 05/05/19 08:00 Humulin R SUB-Q Not Given ACHS [facility] Protocol Levothyroxine Sodium 125 mcg 05/05/19 06:00 05/05/19 06:44 Synthroid PO 125 mcg DAILY@0600 JONNATHAN Administration Magnesium Oxide 400 mg 05/05/19 22:00 Mag-Ox PO QHS [facility] Multivitamins/Minerals 1 each 05/04/19 10:00 05/05/19 11:16 Theragran-M Tab PO 1 each QDAY [facility] Administration Ondansetron HCl 4 mg 05/03/19 14:08 Zofran IV Q8H PRN Nausea And Vomiting Oxybutynin Chloride 5 mg 05/04/19 14:00 05/05/19 11:19 Ditropan PO 5 mg TID JONNATHAN Administration Pantoprazole Sodium 40 mg 05/04/19 10:00 05/05/19 11:16 Protonix PO 40 mg QDAY JONNATHAN Administration Phenazopyridine HCl 100 mg 05/04/19 22:00 05/05/19 11:18 Pyridium PO 100 mg BID JONNATHAN Administration Quetiapine Fumarate 50 mg 05/04/19 10:00 05/05/19 11:16 Seroquel PO 50 mg DAILY JONNATHAN Administration Sodium Chloride 10 ml 05/03/19 22:00 05/04/19 22:48 Sodium Chloride Flush Syringe 10 Ml IV 10 ml BID JONNATHAN Administration Sodium Chloride 10 ml 05/03/19 14:08 Sodium Chloride Flush Syringe 10 Ml IV PRN PRN LINE FLUSH Tamsulosin HCl 0.4 mg 05/04/19 22:00 05/04/19 21:14 Flomax PO 0.4 mg QHS JONNATHAN Administration Venlafaxine HCl 150 mg 05/04/19 10:00 05/05/19 11:18 Effexor Xr PO 150 mg QDAY JONNATHAN Administration Nutrition/Malnutrition Assess - Dietary Evaluation Nutrition/Malnutrition Findings: Nutrition Notes Start: 05/04/19 10:20 Freq: Status: Active Protocol: Document 05/04/19 10:20 CW (Rec: 05/04/19 10:36 CW [id number]) Co-Sign 05/04/19 10:20 LP Nutrition Notes Need for Assessment generated from: MD Order,MST Initial or Follow up Assessment Current Diagnosis CKD(stage I-IV),Coronary Artery Disease,Diabetes, Hyperlipidemia Other Pertinent Diagnosis UTI, MN, Hypothyroidism Current Diet Consistent Carb Labs/Tests BUN 21 Cr 2.4 BG 142 Pertinent Medications Reviewed Height 5 ft 6 in Weight 64.6 kg Usual Body Weight 64.1 kg [place] Body Weight (kg) 59.09 BMI 22.9 Intake Prior to Admission Good Weight Status Appropriate Subjective/Other Information MD consult for MST screening. Calvin score of 18. Pt reports not having any swallowing/ chewing difficulties, wt changes, N/V/D, and having a good appetite. Approxiamtely 50% of dinner eaten on 2019 and 0% of breakfast on D/T dislike of food. However, pt could not state food preferences. Pt reported liking the Ensure supplement and drinking 100% of it. 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 No Is Patient Ambulatory and/or Out of Bed No REE-([facility]-confined to bed) 1360.296 Calculation Used for Recommendations [facility] Additional Notes Protein needs: 65 - 78 g (1 - 1.2 g/ kgBW) Fluid needs: 1 ml/kcal Nutrition Intervention Change Diet Order: Change to Cardiac/ Consistent CHO diet Add Supplement/Snack (indicate name/kcal Glucerna BID /protein ) Provides kCal: 440 Provides Protein (gm) 20 Goal #1 Meet at least 75% of pro/kcal needs via PO Anticipated Discharge Needs: Cardiac/ Consistent CHO diet Follow-Up By: 05/07/19 Additional Comments FU ONS tolerance and PO intake
--- NOTE | 2019-05-05 12:58 | Progress Note ---
Subjective - Reason for Consult Consult date: 05/05/19 Reason for consult: manage mental health - Chief Complaint Chief complaint: During my interview this morning, the patient was lying in bed awake. She's smiling, pleasant, calm and cooperative. She's dressed appropriately. She makes good eye contact. She is confused. When assessing her mentation, she asks me "is Trump coming to your house to eat chicken too." She says she's "doing a lot better." She denies SI/HI at this time. She also denies any hallucinations of any kind. She says her mood is "good" and she slept "good." ROS: Constitutional: Negative for weight loss ENT: Negative for stridor Respiratory: Negative for cough or hemoptysis All other systems reviewed and are negative MENTAL STATUS General Appearance and Behavior: age appropriate, good eye contact, cooperative with questioning and polite Cooperation: Cooperative Psychomotor Behavior: within normal limits Mood: "good" Affect and affective range: Congruent with stated mood Thought Process: Tangential Speech: Normal tone and pace Suicidal Ideation: Denies SI Homicidal Ideation: Denies HI Hallucinations: None elicited Delusions: Grandiose Insight and Judgment: Limited Memory: forgetful Orientation: Confused RECOMMENDATIONS MEDICATIONS: Okay with ordered medications Risks, benefits and alternatives of medications discussed with the patient, ques tions answered and consent obtained from patient. PSYCHOTHERAPY: Supportive psychotherapy provided MEDICAL: Per primary team DELIRIUM PRECAUTIONS: Please re-orient patient frequently, keep lights on during the day, and minimize benzodiazepines and opiates as these medications could worsen patient's confusion. 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
[2019-05-05] MEDS: clonazePAM 0.5 MG TAB PO SCH (16:01)
--- NOTE | 2019-05-05 16:10 | Progress Note ---
Assessment and Plan - Patient Problems (1) Acute kidney injury Current Visit: Yes Status: Acute Plan to address problem: Acute kidney injury Baseline creatinine unknown admission creatinine 1.6, peak creatinine 2.4,current creatinine :1.9 CT reviewed with single kidney Etiology appears secondary to volume depletion Was also on Bactrim which can cause elevated creatinine Continue fluid hydration avoid nephrotoxic medication (2) Metabolic acidosis Current Visit: Yes Status: Acute Plan to address problem: Metabolic acidosis secondary to acute kidney injury continue fluid hydration (3) Anemia Current Visit: Yes Status: Acute Plan to address problem: Moderate anemia hemoglobin 9.6 gram per DL Monitor for bleeding Monitor CBC (4) Hypertension Current Visit: Yes Status: Acute Qualifiers: Hypertension type: essential hypertension Qualified Code(s): I10 - Essential (primary) hypertension Plan to address problem: Hypertension Avoid nephrotoxic medications Resume blood pressure medications Subjective Interval history: History is limited patient is a poor historian and has some confusion 83-year-old lady recently admitted for depression transferred to [facility] given worsening renal function in addition has recently been on Bactrim. 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 She has no edema has no shortness of breath she does admit to some diarrhea associated nausea no recent weight loss patient seen today drowsy, no edema or shortness of breath. Objective - Vital Signs Vital signs: Vital Signs - 12hr 05/05/19 05/05/19 05/05/19 05:36 10:00 11:51 Temperature 98.8 F 99.4 F Pulse Rate 83 Respiratory 22 16 Rate Blood Pressure 144/78 177/52 O2 Sat by Pulse 96 93 Oximetry 05/05/19 15:45 Temperature 99.1 F Pulse Rate 86 Respiratory 18 Rate Blood Pressure 156/53 O2 Sat by Pulse 95 Oximetry - General Appearance General appearance: well-developed, well-nourished EENT: ATNC, PERRL Neck: no JVD Respiratory: Present: Clear to Ascultation Cardiology: regular, S1S2 Gastrointestinal: normal, normoactive bowel sounds Integumentary: no rash Neurologic: alert and oriented x3, CN 3-12 intact Psychiatric: mood/affect appropriate - Lab 05/04/19 05:17 05/05/19 04:25 Most recent lab results Calcium 8.4 mg/dL (8.4-10.2) 05/05/19 04:25 Magnesium 1.60 mg/dL (1.7-2.3) L 05/05/19 04:35 - Imaging Chest x-ray: image reviewed (reviewed CXR without edema. ) Medications & Allergies - Medications Allergies/Adverse Reactions: Allergies risperidone Adverse Reaction (Verified 05/02/19 17:43) Unknown Home Medications: Home Medications Medication Instructions Recorded Confirmed Last Taken Type Carbidopa/Levodopa ER 50-200 50 - 200 mg PO BID 04/29/19 05/03/19 Unknown History [Sinemet ER 50/200] Cholestyramine (with Sugar) 4 gm PO BID 04/29/19 05/03/19 Unknown History [Cholestyramine Packet] Flomax 0.4 mg PO HS 04/29/19 05/03/19 Unknown History Gabapentin 200 mg PO BID 04/29/19 05/03/19 Unknown History Magnesium Amino Acid Chelate 250 mg PO HS 04/29/19 04/29/19 Unknown History [Magnesium] Multivitamin [One-Daily 1 each PO DAILY 04/29/19 05/03/19 Unknown History Multi-Vitamin] Oxybutynin [Ditropan] 5 mg PO TID 04/29/19 05/03/19 Unknown History Pantoprazole [Protonix] 40 mg PO QDAY 04/29/19 05/03/19 Unknown History Synthroid 125 mcg PO QAM 04/29/19 05/03/19 Unknown History Venlafaxine HCl [Effexor Xr] 150 mg PO DAILY 04/29/19 05/03/19 Unknown History buPROPion SR [Wellbutrin Sr] 150 mg PO BID 04/29/19 05/03/19 Unknown History clonazePAM [KlonoPIN] 0.25 mg PO DAILY 04/29/19 05/03/19 Unknown History dilTIAZem [CarDIZEM] 30 mg PO Q6HR 04/29/19 05/03/19 Unknown History Bactrim DS TAB 1 tab PO BID 05/03/19 05/03/19 Unknown History Fish Oil 2,000 mg PO BID 05/03/19 05/03/19 Unknown History Lipitor 10 mg PO QHS 05/03/19 05/03/19 Unknown History Melatonin 5 mg PO QHS PRN 05/03/19 05/03/19 Unknown History Phenazopyridine [Pyridium] 100 mg PO BID 05/03/19 05/03/19 Unknown History SEROquel 50 mg PO DAILY 05/03/19 05/03/19 Unknown History cloNIDine 0.1 mg PO Q4HR PRN 05/03/19 05/03/19 Unknown History haloperidoL [Haldol] 5 mg PO Q6H PRN 05/03/19 05/03/19 Unknown History Active Medications: Generic Name Dose Route Start Last Admin Trade Name Freq PRN Reason Stop Dose Admin Acetaminophen 650 mg 05/03/19 14:08 Tylenol PO Q4H PRN Pain MILD(1-3)/Fever >100.5/BECERRA Atorvastatin Calcium 10 mg 05/04/19 22:00 05/04/19 21:14 Atorvastatin PO 10 mg QHS JONNATHAN Administration Bupropion HCl 150 mg 05/04/19 10:00 05/05/19 11:17 Wellbutrin Sr PO 150 mg BID JONNATHAN Administration Cholestyramine Resin 4 gm 05/04/19 12:00 05/05/19 05:04 Questran PO Not Given 0000,1200 JONNATHAN Clonazepam 0.25 mg 05/05/19 14:00 05/05/19 16:01 Klonopin PO 0.25 mg DAILY JONNATHAN Administration Clonidine HCl 0.1 mg 05/04/19 09:18 05/04/19 09:28 Catapres PO 0.1 mg Q4HR PRN Administration Hypertension Dextrose 50 ml 05/03/19 14:08 D50w (25gm) Syringe IV Q30MIN PRN Hypoglycemia Protocol Diltiazem HCl 30 mg 05/04/19 10:00 05/05/19 16:01 Cardizem PO 30 mg Q6H JONNATHAN Administration Enoxaparin Sodium 30 mg 05/04/19 10:00 05/05/19 11:15 Enoxaparin SUB-Q 30 mg QDAY JONNATHAN Administration Gabapentin 200 mg 05/04/19 10:00 05/05/19 11:15 Gabapentin PO 200 mg BID JONNATHAN Administration Cefepime HCl 2 gm in 100 mls @ 200 mls/hr 05/04/19 10:00 05/05/19 11:18 Cefepime/Ns 2 Gm/100 Ml IV 200 mls/hr Q24HR JONNATHAN Administration Protocol Sodium Chloride 1,000 mls @ 125 mls/hr 05/04/19 14:15 05/05/19 06:44 Nacl 0.9% 1000 Ml IV 125 mls/hr DIRECT JONNATHAN Administration Insulin Human Regular 0 units 05/03/19 16:30 05/05/19 08:00 Humulin R SUB-Q Not Given ACHS [facility] Protocol Levothyroxine Sodium 125 mcg 05/05/19 06:00 05/05/19 06:44 Synthroid PO 125 mcg DAILY@0600 JONNATHAN Administration Magnesium Oxide 400 mg 05/05/19 22:00 Mag-Ox PO QHS [facility] Multivitamins/Minerals 1 each 05/04/19 10:00 05/05/19 11:16 Theragran-M Tab PO 1 each QDAY [facility] Administration Ondansetron HCl 4 mg 05/03/19 14:08 Zofran IV Q8H PRN Nausea And Vomiting Oxybutynin Chloride 5 mg 05/04/19 14:00 05/05/19 16:02 Ditropan PO 5 mg TID JONNATHAN Administration Pantoprazole Sodium 40 mg 05/04/19 10:00 05/05/19 11:16 Protonix PO 40 mg QDAY [facility] Administration Phenazopyridine HCl 100 mg 05/04/19 22:00 05/05/19 11:18 Pyridium PO 100 mg BID JONNATHAN Administration Quetiapine Fumarate 50 mg 05/04/19 10:00 05/05/19 11:16 Seroquel PO 50 mg DAILY JONNATHAN Administration Sodium Chloride 10 ml 05/03/19 22:00 05/04/19 22:48 Sodium Chloride Flush Syringe 10 Ml IV 10 ml BID JONNATHAN Administration Sodium Chloride 10 ml 05/03/19 14:08 Sodium Chloride Flush Syringe 10 Ml IV PRN PRN LINE FLUSH Tamsulosin HCl 0.4 mg 05/04/19 22:00 05/04/19 21:14 Flomax PO 0.4 mg QHS [facility] Administration Venlafaxine HCl 150 mg 05/04/19 10:00 05/05/19 11:18 Effexor Xr PO 150 mg QDAY [facility] Administration
[2019-05-05] MEDS: HALOPERIDOL LACTATE 5 MG/1 ML INJ IM PRN (16:56)
[2019-05-05] MEDS: TAMSULOSIN 0.4 MG CAP PO SCH (21:40)
[2019-05-05] MEDS: MAGNESIUM OXIDE 400 MG TAB PO SCH (21:40)
[2019-05-05] MEDS: CARBIDOPA/LEVODOPA 25-250 TAB PO SCH (22:02)
[2019-05-06] MEDS: SODIUM CHLORIDE 0.9% 1000 ML 1,000 ML IV SCH ×2 (01:41→10:09)
[2019-05-06] MEDS: HALOPERIDOL LACTATE 5 MG/1 ML INJ IM PRN (01:41)
[2019-05-06] MEDS: OXYBUTYNIN 5 MG TAB PO SCH ×3 (08:21→19:55)
[2019-05-06] MEDS: INSULIN REGULAR, HUMAN 100 UNITS/1 ML SUB-Q SCH ×4 (08:28→21:35)
[2019-05-06 08:56] LABS: Calcium 8.7 mg/dL (8.4-10.2)
[2019-05-06 09:00] LABS: Calcium 8.6 mg/dL (8.4-10.2)
[2019-05-06 09:11] LABS: Hematocrit 25.6 % (30.3-42.9); Hemoglobin 8.9 gm/dl (10.1-14.3); Mean Corpuscular HGB Conc 35 % (30-34); Mean Corpuscular Volume 91 fl (79-97); Platelet Count 197 K/mm3 (140-440); Red Blood Count 2.82 M/mm3 (3.65-5.03); Red Cell Distribution Width 16.9 % (13.2-15.2)
[2019-05-06] MEDS: clonazePAM 0.5 MG TAB PO SCH (09:31)
[2019-05-06] MEDS: ENOXAPARIN 30 MG/0.3 ML INJ SUB-Q SCH (09:31)
[2019-05-06] MEDS: QUEtiapine 25 MG TAB PO SCH (09:32)
[2019-05-06] MEDS: MULTIVITAMINS,THER W-MINERALS TAB PO SCH (09:32)
[2019-05-06] MEDS: buPROPion SR 150 MG TAB PO SCH ×2 (09:33→21:21)
[2019-05-06] MEDS: CEFEPIME/NS 2 GM/100 ML 2 GM/100 ML BAG IV SCH (09:33)
[2019-05-06] MEDS: PANTOPRAZOLE 40 MG TAB PO SCH (09:33)
[2019-05-06] MEDS: GABAPENTIN 100 MG CAP PO SCH ×2 (09:33→21:21)
[2019-05-06] MEDS: PHENAZOPYRIDINE 100 MG TAB PO SCH ×2 (09:34→21:14)
[2019-05-06] MEDS: VENLAFAXINE XR 75 MG CAP PO SCH (09:34)
[2019-05-06] MEDS: dilTIAZem 30 MG TAB PO SCH ×5 (10:09→22:34)
--- NOTE | 2019-05-06 10:15 | Progress Note ---
Assessment and Plan Assessment and plan: Sepsis. Patient meets criteria given tachycardia, leukopenia and diagnosis of UTI. Continue IV antibiotics and follow-up blood and urine cultures. Acute hypoxic respiratory failure. Etiology may be secondary to above. Check chest x-ray. UTI. As above. Follow-up urine cultures. ARF. I suspect patient has underlying CKD. We do not have baseline creatinine to compare. CT scan showed no evidence of obstruction. Consult nephrology. Diabetes mellitus type 2. Continue Accu-Cheks and sliding scale insulin. Hyperlipidemia. Continue statin. Hypothyroidism. Continue Synthroid. Check TSH levels. Parkinson's disease. Resume home medications. History Interval history: No new issues overnight Hospitalist Physical - Constitutional Vitals: Temp Pulse Resp BP Pulse Ox 99.0 F 87 20 159/60 94 05/06/19 05:50 05/06/19 10:09 05/06/19 05:50 05/06/19 10:09 05/06/19 08:52 General appearance: Present: no acute distress, well-nourished - EENT Eyes: Present: PERRL, EOM intact ENT: hearing intact, clear oral mucosa, dentition normal - Neck Neck: Present: supple, normal ROM - Respiratory Respiratory effort: normal Respiratory: bilateral: CTA - Cardiovascular Rhythm: regular Heart Sounds: Present: S1 & S2. Absent: gallop, rub - Extremities Extremities: no ischemia, No edema, Full ROM - Abdominal General gastrointestinal: soft, non-tender, non-distended, normal bowel sounds - Integumentary Integumentary: Present: clear, warm, dry - Neurologic Neurologic: CNII-XII intact, moves all extremities Results - Labs CBC & Chem 7: 05/06/19 08:20 05/06/19 08:20 Labs: Laboratory Last Values WBC 2.5 K/mm3 (4.5-11.0) L 05/06/19 08:20 RBC 2.82 M/mm3 (3.65-5.03) L 05/06/19 08:20 Hgb 8.9 gm/dl (10.1-14.3) L 05/06/19 08:20 Hct 25.6 % (30.3-42.9) L 05/06/19 08:20 MCV 91 fl (79-97) 05/06/19 08:20 MCH 31 pg (28-32) 05/06/19 08:20 MCHC 35 % (30-34) H 05/06/19 08:20 RDW 16.9 % (13.2-15.2) H 05/06/19 08:20 Plt Count 197 K/mm3 (140-440) 05/06/19 08:20 Add Manual Diff Complete 05/04/19 05:17 Total Counted 100 05/04/19 05:17 Seg Neuts % (Manual) 75.0 % (40.0-70.0) H 05/04/19 05:17 Band Neutrophils % 0 % 05/04/19 05:17 Lymphocytes % (Manual) 12.0 % (13.4-35.0) L 05/04/19 05:17 Reactive Lymphs % (Man) 0 % 05/04/19 05:17 Monocytes % (Manual) 7.0 % (0.0-7.3) 05/04/19 05:17 Eosinophils % (Manual) 5.0 % (0.0-4.3) H 05/04/19 05:17 Basophils % (Manual) 1.0 % (0.0-1.8) 05/04/19 05:17 Metamyelocytes % 0 % 05/04/19 05:17 Myelocytes % 0 % 05/04/19 05:17 Promyelocytes % 0 % 05/04/19 05:17 Blast Cells % 0 % 05/04/19 05:17 Nucleated RBC % Not Reportable 05/04/19 05:17 Seg Neutrophils # Man 2.6 K/mm3 (1.8-7.7) 05/04/19 05:17 Band Neutrophils # 0.0 K/mm3 05/04/19 05:17 Lymphocytes # (Manual) 0.4 K/mm3 (1.2-5.4) L 05/04/19 05:17 Abs React Lymphs (Man) 0.0 K/mm3 05/04/19 05:17 Monocytes # (Manual) 0.2 K/mm3 (0.0-0.8) 05/04/19 05:17 Eosinophils # (Manual) 0.2 K/mm3 (0.0-0.4) 05/04/19 05:17 Basophils # (Manual) 0.0 K/mm3 (0.0-0.1) 05/04/19 05:17 Metamyelocytes # 0.0 K/mm3 05/04/19 05:17 Myelocytes # 0.0 K/mm3 05/04/19 05:17 Promyelocytes # 0.0 K/mm3 05/04/19 05:17 Blast Cells # 0.0 K/mm3 05/04/19 05:17 WBC Morphology Not Reportable 05/04/19 05:17 Hypersegmented Neuts Not Reportable 05/04/19 05:17 Hyposegmented Neuts Not Reportable 05/04/19 05:17 Hypogranular Neuts Not Reportable 05/04/19 05:17 Smudge Cells Not Reportable 05/04/19 05:17 Toxic Granulation Not Reportable 05/04/19 05:17 Toxic Vacuolation Not Reportable 05/04/19 05:17 Dohle Bodies Not Reportable 05/04/19 05:17 Pelger-Huet Anomaly Not Reportable 05/04/19 05:17 Blue Rods Not Reportable 05/04/19 05:17 Platelet Estimate Consistent w auto 05/04/19 05:17 Clumped Platelets Not Reportable 05/04/19 05:17 Plt Clumps, EDTA Not Reportable 05/04/19 05:17 Large Platelets Not Reportable 05/04/19 05:17 Giant Platelets Not Reportable 05/04/19 05:17 Platelet Satelliting Not Reportable 05/04/19 05:17 Plt Morphology Comment Not Reportable 05/04/19 05:17 RBC Morphology Normal 05/04/19 05:17 Dimorphic RBCs Not Reportable 05/04/19 05:17 Polychromasia Not Reportable 05/04/19 05:17 Hypochromasia Not Reportable 05/04/19 05:17 Poikilocytosis Not Reportable 05/04/19 05:17 Anisocytosis Not Reportable 05/04/19 05:17 Microcytosis Not Reportable 05/04/19 05:17 Macrocytosis Not Reportable 05/04/19 05:17 Spherocytes Not Reportable 05/04/19 05:17 Pappenheimer Bodies Not Reportable 05/04/19 05:17 Sickle Cells Not Reportable 05/04/19 05:17 Target Cells Not Reportable 05/04/19 05:17 Tear Drop Cells Not Reportable 02/07/20 05:17 Ovalocytes Not Reportable 05/04/19 05:17 Helmet Cells Not Reportable 05/04/19 05:17 [place] Bodies Not Reportable 05/04/19 05:17 [place] Rings Not Reportable 05/04/19 05:17 [place] Cells Not Reportable 05/04/19 05:17 Bite Cells Not Reportable 05/04/19 05:17 Crenated Cell Not Reportable 05/04/19 05:17 Elliptocytes Not Reportable 05/04/19 05:17 Acanthocytes (Spur) Not Reportable 05/04/19 05:17 Rouleaux Not Reportable 05/04/19 05:17 Hemoglobin C Crystals Not Reportable 05/04/19 05:17 Schistocytes Not Reportable 05/04/19 05:17 Malaria parasites Not Reportable 05/04/19 05:17 Leo Bodies Not Reportable 05/04/19 05:17 Hem Pathologist Commnt No 05/04/19 05:17 Sodium 140 mmol/L (137-145) 05/06/19 08:20 Sodium 141 mmol/L (137-145) 05/06/19 08:20 Potassium 4.9 mmol/L (3.6-5.0) 05/06/19 08:20 Potassium 5.0 mmol/L (3.6-5.0) 05/06/19 08:20 Chloride 105.7 mmol/L (98-107) 05/06/19 08:20 Chloride 107.4 mmol/L (98-107) H 05/06/19 08:20 Carbon Dioxide 20 mmol/L (22-30) L 05/06/19 08:20 Carbon Dioxide 21 mmol/L (22-30) L 05/06/19 08:20 Anion Gap 18 mmol/L 05/06/19 08:20 Anion Gap 19 mmol/L 05/06/19 08:20 BUN 16 mg/dL (7-17) 05/06/19 08:20 BUN 16 mg/dL (7-17) 05/06/19 08:20 Creatinine 1.8 mg/dL (0.7-1.2) H 05/06/19 08:20 Creatinine 1.8 mg/dL (0.7-1.2) H 05/06/19 08:20 Estimated GFR 27 ml/min 05/06/19 08:20 Estimated GFR 27 ml/min 05/06/19 08:20 BUN/Creatinine Ratio 9 % 05/06/19 08:20 BUN/Creatinine Ratio 9 % 05/06/19 08:20 Glucose 97 mg/dL (65-100) 05/06/19 08:20 Glucose 100 mg/dL (65-100) 05/06/19 08:20 POC Glucose 88 (70-105) 05/06/19 08:26 Calcium 8.6 mg/dL (8.4-10.2) 05/06/19 08:20 Calcium 8.7 mg/dL (8.4-10.2) 05/06/19 08:20 Magnesium 1.60 mg/dL (1.7-2.3) L 05/05/19 04:35 Blood Type O POSITIVE 05/03/19 15:12 Antibody Screen Positive 05/03/19 15:12 Active Medications - Current Medications Current Medications: Generic Name Dose Route Start Last Admin Trade Name Freq PRN Reason Stop Dose Admin Acetaminophen 650 mg 05/03/19 14:08 Tylenol PO Q4H PRN Pain MILD(1-3)/Fever >100.5/BECERRA Atorvastatin Calcium 10 mg 05/04/19 22:00 05/05/19 21:40 Atorvastatin PO 10 mg QHS JONNATHAN Administration Bupropion HCl 150 mg 05/04/19 10:00 05/06/19 09:33 Wellbutrin Sr PO 150 mg BID JONNATHAN Administration Carbidopa/Levodopa 2 each 05/05/19 22:00 05/05/19 22:02 Sinemet PO 2 each QHS JONNATHAN Administration Cholestyramine Resin 4 gm 05/04/19 12:00 05/06/19 00:00 Questran PO 4 gm 0000,1200 JONNATHAN Administration Clonazepam 0.25 mg 05/05/19 14:00 05/06/19 09:31 Klonopin PO 0.25 mg DAILY JONNATHAN Administration Clonidine HCl 0.1 mg 05/04/19 09:18 05/04/19 09:28 Catapres PO 0.1 mg Q4HR PRN Administration Hypertension Dextrose 50 ml 05/03/19 14:08 D50w (25gm) Syringe IV Q30MIN PRN Hypoglycemia Protocol Diltiazem HCl 30 mg 05/04/19 10:00 02/09/20 10:09 Cardizem PO 30 mg Q6H JONNATHAN Administration Enoxaparin Sodium 30 mg 05/04/19 10:00 05/06/19 09:31 Enoxaparin SUB-Q 30 mg QDAY JONNATHAN Administration Gabapentin 200 mg 05/04/19 10:00 05/06/19 09:33 Gabapentin PO 200 mg BID JONNATHAN Administration Haloperidol Lactate 1 mg 05/05/19 16:25 05/06/19 01:41 Haldol IM 1 mg Q6H PRN Administration Agitation Cefepime HCl 2 gm in 100 mls @ 200 mls/hr 05/04/19 10:00 05/06/19 09:33 Cefepime/Ns 2 Gm/100 Ml IV 200 mls/hr Q24HR JONNATHAN Administration Protocol Sodium Chloride 1,000 mls @ 125 mls/hr 05/04/19 14:15 05/06/19 10:09 Nacl 0.9% 1000 Ml IV 125 mls/hr DIRECT JONNATHAN Administration Insulin Human Regular 0 units 05/03/19 16:30 05/06/19 08:28 Humulin R SUB-Q Not Given ACHS [facility] Protocol Levothyroxine Sodium 125 mcg 05/05/19 06:00 05/05/19 06:44 Synthroid PO 125 mcg DAILY@0600 JONNATHAN Administration Magnesium Oxide 400 mg 05/05/19 22:00 05/05/19 21:40 Mag-Ox PO 400 mg QHS JONNATHAN Administration Multivitamins/Minerals 1 each 05/04/19 10:00 05/06/19 09:32 Theragran-M Tab PO 1 each QDAY JONNATHAN Administration Ondansetron HCl 4 mg 05/03/19 14:08 Zofran IV Q8H PRN Nausea And Vomiting Oxybutynin Chloride 5 mg 05/04/19 14:00 05/06/19 08:21 Ditropan PO 5 mg TID JONNATHAN Administration Pantoprazole Sodium 40 mg 05/04/19 10:00 05/06/19 09:33 Protonix PO 40 mg QDAY JONNATHAN Administration Phenazopyridine HCl 100 mg 05/04/19 22:00 05/06/19 09:34 Pyridium PO 100 mg BID JONNATHAN Administration Quetiapine Fumarate 50 mg 05/04/19 10:00 05/06/19 09:32 Seroquel PO 50 mg DAILY JONNATHAN Administration Sodium Chloride 10 ml 05/03/19 22:00 05/06/19 09:34 Sodium Chloride Flush Syringe 10 Ml IV 10 ml BID JONNATHAN Administration Sodium Chloride 10 ml 05/03/19 14:08 Sodium Chloride Flush Syringe 10 Ml IV PRN PRN LINE FLUSH Tamsulosin HCl 0.4 mg 05/04/19 22:00 05/05/19 21:40 Flomax PO 0.4 mg QHS JONNATHAN Administration Venlafaxine HCl 150 mg 05/04/19 10:00 05/06/19 09:34 Effexor Xr PO 150 mg QDAY JONNATHAN Administration Nutrition/Malnutrition Assess - Dietary Evaluation Nutrition/Malnutrition Findings: Nutrition Notes Start: 05/04/19 10:20 Freq: Status: Active Protocol: Document 05/04/19 10:20 CW (Rec: 05/04/19 10:36 CW [id number]) Co-Sign 05/04/19 10:20 LP Nutrition Notes Need for Assessment generated from: MD Order,MST Initial or Follow up Assessment Current Diagnosis CKD(stage I-IV),Coronary Artery Disease,Diabetes, Hyperlipidemia Other Pertinent Diagnosis UTI, IN, Hypothyroidism Current Diet Consistent Carb Labs/Tests BUN 21 Cr 2.4 BG 142 Pertinent Medications Reviewed Height 5 ft 6 in Weight 64.6 kg Usual Body Weight 64.1 kg [place] Body Weight (kg) 59.09 BMI 22.9 Intake Prior to Admission Good Weight Status Appropriate Subjective/Other Information MD consult for MST screening. Calvin score of 18. Pt reports not having any swallowing/ chewing difficulties, wt changes, N/V/D, and having a good appetite. Approxiamtely 50% of dinner eaten on 2019 and 0% of breakfast on D/T dislike of food. However, pt could not state food preferences. Pt reported liking the Ensure supplement and drinking 100% of it. Suggest changing ONS to BID to increase PO intake Burn Absent Trauma Absent GI Symptoms None Current % PO Poor (25-49%) Minimum of two criteria No Reduced Key Account Coordinator Strength Measurably Reduced (severe) #1 Nutrition Diagnosis Inadequate oral intake Etiology chronic illness and advanced age As Evidenced by Signs and Symptoms pt only consuming 1 Glucerna during breakfast Is patient on ventilator? No Is Patient Ambulatory and/or Out of Bed No REE[facility] 1360.296 Calculation Used for Recommendations Janki Braun Additional Notes Protein needs: 65 - 78 g (1 - 1.2 g/ kgBW) Fluid needs: 1 ml/kcal Nutrition Intervention Change Diet Order: Change to Cardiac/ Consistent CHO diet Add Supplement/Snack (indicate name/kcal Glucerna BID /protein ) Provides kCal: 440 Provides Protein (gm) 20 Goal #1 Meet at least 75% of pro/kcal needs via PO Anticipated Discharge Needs: Cardiac/ Consistent CHO diet Follow-Up By: 05/07/19 Additional Comments FU ONS tolerance and PO intake
[2019-05-06 12:33] LABS: Basophils % (Manual) 0 % (0.0-1.8); Platelet Estimate Consistent w Auto; Total Cells Counted 100
[2019-05-06] MEDS: CHOLESTYRAMINE (WITH SUGAR) 4 GM PACKET PO SCH ×2 (13:42)
--- NOTE | 2019-05-06 14:42 | Progress Note ---
Assessment and Plan - Patient Problems (1) Acute kidney injury Current Visit: Yes Status: Acute Plan to address problem: Acute kidney injury improving. Baseline creatinine unknown admission creatinine 1.6, peak creatinine 2.4,current creatinine :1.8 CT reviewed with single kidney Etiology appears secondary to volume depletion Was also on Bactrim which can cause elevated creatinine Continue fluid hydration avoid nephrotoxic medication (2) Metabolic acidosis Current Visit: Yes Status: Acute Plan to address problem: Metabolic acidosis secondary to acute kidney injury continue fluid hydration (3) Anemia Current Visit: Yes Status: Acute Plan to address problem: Moderate anemia hemoglobin 9.6 gram per DL Monitor for bleeding Monitor CBC (4) Hypertension Current Visit: Yes Status: Acute Qualifiers: Hypertension type: essential hypertension Qualified Code(s): I10 - Essential (primary) hypertension Plan to address problem: Hypertension Avoid nephrotoxic medications Resume blood pressure medications Subjective Interval history: History is limited patient is a poor historian and has some confusion 83-year-old lady recently admitted for depression transferred to [facility] given worsening renal function in addition has recently been on Bactrim. 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 She has no edema has no shortness of breath she does admit to some diarrhea associated nausea no recent weight loss patient seen today drowsy, no edema or shortness of breath. Feeling well denies any fever or chills Daughter ats bedside plan of care discussed Objective - Vital Signs Vital signs: Vital Signs - 12hr 05/06/19 05/06/19 05/06/19 05:50 08:52 10:09 Temperature 99.0 F Pulse Rate 87 87 Respiratory 20 Rate Blood Pressure 159/60 159/60 O2 Sat by Pulse 94 94 Oximetry 05/06/19 11:57 Temperature 99.1 F Pulse Rate 96 H Respiratory 18 Rate Blood Pressure 152/75 O2 Sat by Pulse 93 Oximetry - General Appearance General appearance: well-developed, well-nourished EENT: ATNC, PERRL Neck: no JVD Respiratory: Present: Clear to Ascultation Cardiology: regular, S1S2 Gastrointestinal: normal, normoactive bowel sounds Integumentary: no rash Neurologic: disoriented, CN 3-12 intact Psychiatric: depressed - Lab 05/06/19 08:20 05/06/19 08:20 Most recent lab results Calcium 8.6 mg/dL (8.4-10.2) 05/06/19 08:20 Calcium 8.7 mg/dL (8.4-10.2) 05/06/19 08:20 Magnesium 1.60 mg/dL (1.7-2.3) L 05/05/19 04:35 - Imaging Chest x-ray: image reviewed (reviewed CXr without edema. ) Medications & Allergies - Medications Allergies/Adverse Reactions: Allergies risperidone Adverse Reaction (Verified 05/02/19 17:43) Unknown Home Medications: Home Medications Medication Instructions Recorded Confirmed Last Taken Type Carbidopa/Levodopa ER 50-200 50 - 200 mg PO BID 04/29/19 05/03/19 Unknown Histor y [Sinemet ER 50/200] Cholestyramine (with Sugar) 4 gm PO BID 04/29/19 05/03/19 Unknown History [Cholestyramine Packet] Flomax 0.4 mg PO HS 04/29/19 05/03/19 Unknown History Gabapentin 200 mg PO BID 04/29/19 05/03/19 Unknown History Magnesium Amino Acid Chelate 250 mg PO HS 04/29/19 04/29/19 Unknown History [Magnesium] Multivitamin [One-Daily 1 each PO DAILY 04/29/19 05/03/19 Unknown History Multi-Vitamin] Oxybutynin [Ditropan] 5 mg PO TID 04/29/19 05/03/19 Unknown History Pantoprazole [Protonix] 40 mg PO QDAY 04/29/19 05/03/19 Unknown History Synthroid 125 mcg PO QAM 04/29/19 05/03/19 Unknown History Venlafaxine HCl [Effexor Xr] 150 mg PO DAILY 04/29/19 05/03/19 Unknown History buPROPion SR [Wellbutrin Sr] 150 mg PO BID 04/29/19 05/03/19 Unknown History clonazePAM [KlonoPIN] 0.25 mg PO DAILY 04/29/19 05/03/19 Unknown History dilTIAZem [CarDIZEM] 30 mg PO Q6HR 04/29/19 05/03/19 Unknown History Bactrim DS TAB 1 tab PO BID 05/03/19 05/03/19 Unknown History Fish Oil 2,000 mg PO BID 05/03/19 05/03/19 Unknown History Lipitor 10 mg PO QHS 05/03/19 05/03/19 Unknown History Melatonin 5 mg PO QHS PRN 05/03/19 05/03/19 Unknown History Phenazopyridine [Pyridium] 100 mg PO BID 05/03/19 05/03/19 Unknown History SEROquel 50 mg PO DAILY 05/03/19 05/03/19 Unknown History cloNIDine 0.1 mg PO Q4HR PRN 05/03/19 05/03/19 Unknown History haloperidoL [Haldol] 5 mg PO Q6H PRN 05/03/19 05/03/19 Unknown History Active Medications: Generic Name Dose Route Start Last Admin Trade Name Freq PRN Reason Stop Dose Admin Acetaminophen 650 mg 05/03/19 14:08 Tylenol PO Q4H PRN Pain MILD(1-3)/Fever >100.5/BECERRA Atorvastatin Calcium 10 mg 05/04/19 22:00 05/05/19 21:40 Atorvastatin PO 10 mg QHS JONNATHAN Administration Bupropion HCl 150 mg 05/04/19 10:00 05/06/19 09:33 Wellbutrin Sr PO 150 mg BID JONNATHAN Administration Carbidopa/Levodopa 2 each 05/05/19 22:00 05/05/19 22:02 Sinemet PO 2 each QHS JONNATHAN Administration Cholestyramine Resin 4 gm 05/04/19 12:00 05/06/19 13:42 Questran PO 4 gm 0000,1200 JONNATHAN Administration Clonazepam 0.25 mg 05/05/19 14:00 05/06/19 09:31 Klonopin PO 0.25 mg DAILY JONNATHAN Administration Clonidine HCl 0.1 mg 05/04/19 09:18 05/04/19 09:28 Catapres PO 0.1 mg Q4HR PRN Administration Hypertension Dextrose 50 ml 05/03/19 14:08 D50w (25gm) Syringe IV Q30MIN PRN Hypoglycemia Protocol Diltiazem HCl 30 mg 05/04/19 10:00 05/06/19 10:09 Cardizem PO 30 mg Q6H JONNATHAN Administration Enoxaparin Sodium 30 mg 05/04/19 10:00 05/06/19 09:31 Enoxaparin SUB-Q 30 mg QDAY JONNATHAN Administration Gabapentin 200 mg 05/04/19 10:00 05/06/19 09:33 Gabapentin PO 200 mg BID JONNATHAN Administration Haloperidol Lactate 1 mg 05/05/19 16:25 05/06/19 01:41 Haldol IM 1 mg Q6H PRN Administration Agitation Cefepime HCl 2 gm in 100 mls @ 200 mls/hr 05/04/19 10:00 05/06/19 09:33 Cefepime/Ns 2 Gm/100 Ml IV 200 mls/hr Q24HR JONNATHAN Administration Protocol Sodium Chloride 1,000 mls @ 125 mls/hr 05/04/19 14:15 05/06/19 10:09 Nacl 0.9% 1000 Ml IV 125 mls/hr DIRECT JONNATHAN Administration Insulin Human Regular 0 units 05/03/19 16:30 05/06/19 08:28 Humulin R SUB-Q Not Given ACHS [facility] Protocol Levothyroxine Sodium 125 mcg 05/05/19 06:00 05/05/19 06:44 Synthroid PO 125 mcg DAILY@0600 JONNATHAN Administration Magnesium Oxide 400 mg 05/05/19 22:00 05/05/19 21:40 Mag-Ox PO 400 mg QHS JONNATHAN Administration Multivitamins/Minerals 1 each 05/04/19 10:00 05/06/19 09:32 Theragran-M Tab PO 1 each QDAY JONNATHAN Administration Ondansetron HCl 4 mg 05/03/19 14:08 Zofran IV Q8H PRN Nausea And Vomiting Oxybutynin Chloride 5 mg 05/04/19 14:00 05/06/19 13:42 Ditropan PO 5 mg TID JONNATHAN Administration Pantoprazole Sodium 40 mg 05/04/19 10:00 05/06/19 09:33 Protonix PO 40 mg QDAY JONNATHAN Administration Phenazopyridine HCl 100 mg 05/04/19 22:00 05/06/19 09:34 Pyridium PO 100 mg BID JONNATHAN Administration Quetiapine Fumarate 50 mg 05/04/19 10:00 05/06/19 09:32 Seroquel PO 50 mg DAILY JNONATHAN Administration Sodium Chloride 10 ml 05/03/19 22:00 05/06/19 09:34 Sodium Chloride Flush Syringe 10 Ml IV 10 ml BID JONNATHAN Administration Sodium Chloride 10 ml 05/03/19 14:08 Sodium Chloride Flush Syringe 10 Ml IV PRN PRN LINE FLUSH Tamsulosin HCl 0.4 mg 05/04/19 22:00 05/05/19 21:40 Flomax PO 0.4 mg QHS JONNATHAN Administration Venlafaxine HCl 150 mg 05/04/19 10:00 05/06/19 09:34 Effexor Xr PO 150 mg QDAY JONNATHAN Administration
--- NOTE | 2019-05-06 15:21 | Progress Note ---
Subjective - Reason for Consult Consult date: 05/06/19 Reason for consult: disorganization - Chief Complaint Chief complaint: During my interview this morning, the patient was lying in bed awake. Her daughter, Renu is at bedside. The patient is dressed appropriately. She makes good eye contact. She is confused and disorganized. Her speech is garbled and difficult to understand at times. The patient needs constant redirection. She says she "was depressed and cried all night" about her "." She denies SI/HI. When asked about hallucinations the patient replied, "yes, but maybe not as much like before." When aksing the patient if she was hearing voices, she looked as if she didn't understand the question, she then laughed and stated "I believe so." She says "I'm better now." The daughter says the patient is normally like "you and I." She says she "gets up and matches her jewelry with her clothes." She says "this is different for her." Renu states, "here is two hours away. If she's not better I'd like her transferred somewhere closer." ROS: Constitutional: Negative for weight loss ENT: Negative for stridor Respiratory: Negative for cough or hemoptysis All other systems reviewed and are negative MENTAL STATUS General Appearance and Behavior: age appropriate, good eye contact, cooperative with questioning and polite Cooperation: Cooperative Psychomotor Behavior: within normal limits Mood: "good" Affect and affective range: Congruent with stated mood Thought Process: Tangential Speech: Normal tone and pace Suicidal Ideation: Denies SI Homicidal Ideation: Denies HI Hallucinations: Auditory Delusions: None elicited Insight and Judgment: Limited Memory: forgetful Orientation: Confused RECOMMENDATIONS MEDICATIONS: Okay with ordered medications Risks, benefits and alternatives of medications discussed with the patient, questions answered and consent obtained from patient. PSYCHOTHERAPY: Supportive psychotherapy provided MEDICAL: Per primary team DELIRIUM PRECAUTIONS: Please re-orient patient frequently, keep lights on during the day, and minimize benzodiazepines and opiates as these medications could worsen patient's confusion. [employer] TEACHER: Defer to primary DISPOSITION: TBD once medically clear FOLLOW-UP: Will continue to follow Mental Status Exam - Vital signs Last Vital Signs Temp 99.1 F 05/06/19 11:57 Pulse 96 H 02/09/20 11:57 Resp 18 05/06/19 11:57 BP 152/75 05/06/19 11:57 Pulse Ox 93 05/06/19 11:57
[2019-05-06] MEDS: CARBIDOPA/LEVODOPA 25-250 TAB PO SCH (21:13)
[2019-05-06] MEDS: TAMSULOSIN 0.4 MG CAP PO SCH (21:14)
[2019-05-06] MEDS: MAGNESIUM OXIDE 400 MG TAB PO SCH (21:22)
[2019-05-07] MEDS: CHOLESTYRAMINE (WITH SUGAR) 4 GM PACKET PO SCH ×2 (00:36→12:09)
[2019-05-07] MEDS: HALOPERIDOL LACTATE 5 MG/1 ML INJ IM PRN (03:19)
[2019-05-07] MEDS: dilTIAZem 30 MG TAB PO SCH ×4 (03:50→22:34)
[2019-05-07] MEDS: SODIUM CHLORIDE 0.9% 1000 ML 1,000 ML IV SCH ×2 (04:58→23:02)
[2019-05-07] MEDS: LEVOTHYROXINE 125 MCG TAB PO SCH (05:02)
[2019-05-07 08:00] LABS: Hematocrit 26.5 % (30.3-42.9); Mean Corpuscular HGB Conc 34 % (30-34); Mean Corpuscular Volume 92 fl (79-97); Platelet Count 200 K/mm3 (140-440); Red Blood Count 2.87 M/mm3 (3.65-5.03); Red Cell Distribution Width 17.4 % (13.2-15.2)
[2019-05-07 08:20] LABS: Calcium 8.8 mg/dL (8.4-10.2)
--- NOTE | 2019-05-07 08:22 | Progress Note ---
Assessment and Plan Assessment and plan: Sepsis. Patient meets criteria given tachycardia, leukopenia and diagnosis of UTI. Continue IV antibiotics and follow-up blood and urine cultures. Acute hypoxic respiratory failure. Etiology may be secondary to above. Check chest x-ray. UTI. As above. Follow-up urine cultures. ARF. I suspect patient has underlying CKD. We do not have baseline creatinine to compare. CT scan showed no evidence of obstruction. Consult nephrology. Diabetes mellitus type 2. Continue Accu-Cheks and sliding scale insulin. Hyperlipidemia. Continue statin. Hypothyroidism. Continue Synthroid. Check TSH levels. Parkinson's disease. Resume home medications. History Interval history: No new issues overnight. Patient still confused. Hospitalist Physical - Constitutional Vitals: Temp Pulse Resp BP Pulse Ox 97.9 F 82 16 138/52 94 05/07/19 05:16 05/07/19 05:16 05/07/19 05:16 05/07/19 05:16 05/07/19 05:16 General appearance: Present: no acute distress, well-nourished - EENT Eyes: Present: PERRL, EOM intact ENT: hearing intact, clear oral mucosa, dentition normal - Neck Neck: Present: supple, normal ROM - Respiratory Respiratory effort: normal Respiratory: bilateral: CTA - Cardiovascular Rhythm: regular Heart Sounds: Present: S1 & S2. Absent: gallop, rub - Extremities Extremities: no ischemia, No edema, Full ROM - Abdominal General gastrointestinal: soft, non-tender, non-distended, normal bowel sounds - Integumentary Integumentary: Present: clear, warm, dry - Neurologic Neurologic: CNII-XII intact, moves all extremities Results - Labs CBC & Chem 7: 05/07/19 07:31 05/06/19 08:20 Labs: Laboratory Last Values WBC 2.2 K/mm3 (4.5-11.0) L 05/07/19 07:31 RBC 2.87 M/mm3 (3.65-5.03) L 05/07/19 07:31 Hgb 9.0 gm/dl (10.1-14.3) L 05/07/19 07:31 Hct 26.5 % (30.3-42.9) L 05/07/19 07:31 MCV 92 fl (79-97) 05/07/19 07:31 MCH 31 pg (28-32) 05/07/19 07:31 MCHC 34 % (30-34) 05/07/19 07:31 RDW 17.4 % (13.2-15.2) H 05/07/19 07:31 Plt Count 200 K/mm3 (140-440) 05/07/19 07:31 Add Manual Diff Complete 05/06/19 08:20 Total Counted 100 05/06/19 08:20 Seg Neuts % (Manual) 76.0 % (40.0-70.0) H 05/06/19 08:20 Band Neutrophils % 1.0 % 05/06/19 08:20 Lymphocytes % (Manual) 12.0 % (13.4-35.0) L 05/06/19 08:20 Reactive Lymphs % (Man) 2.0 % 05/06/19 08:20 Monocytes % (Manual) 7.0 % (0.0-7.3) 05/06/19 08:20 Eosinophils % (Manual) 2.0 % (0.0-4.3) 05/06/19 08:20 Basophils % (Manual) 0 % (0.0-1.8) 05/06/19 08:20 Metamyelocytes % 0 % 05/06/19 08:20 Myelocytes % 0 % 05/06/19 08:20 Promyelocytes % 0 % 05/06/19 08:20 Blast Cells % 0 % 05/06/19 08:20 Nucleated RBC % Not Reportable 05/06/19 08:20 Seg Neutrophils # Man 1.9 K/mm3 (1.8-7.7) 05/06/19 08:20 Band Neutrophils # 0.0 K/mm3 05/06/19 08:20 Lymphocytes # (Manual) 0.3 K/mm3 (1.2-5.4) L 05/06/19 08:20 Abs React Lymphs (Man) 0.1 K/mm3 05/06/19 08:20 Monocytes # (Manual) 0.2 K/mm3 (0.0-0.8) 05/06/19 08:20 Eosinophils # (Manual) 0.1 K/mm3 (0.0-0.4) 05/06/19 08:20 Basophils # (Manual) 0.0 K/mm3 (0.0-0.1) 05/06/19 08:20 Metamyelocytes # 0.0 K/mm3 05/06/19 08:20 Myelocytes # 0.0 K/mm3 05/06/19 08:20 Promyelocytes # 0.0 K/mm3 05/06/19 08:20 Blast Cells # 0.0 K/mm3 05/06/19 08:20 WBC Morphology Not Reportable 05/06/19 08:20 Hypersegmented Neuts Not Reportable 05/06/19 08:20 Hyposegmented Neuts Not Reportable 05/06/19 08:20 Hypogranular Neuts Not Reportable 05/06/19 08:20 Smudge Cells Not Reportable 05/06/19 08:20 Toxic Granulation Not Reportable 05/06/19 08:20 Toxic Vacuolation Not Reportable 05/06/19 08:20 Dohle Bodies Not Reportable 05/06/19 08:20 Pelger-Huet Anomaly Not Reportable 05/06/19 08:20 Blue Rods Not Reportable 05/06/19 08:20 Platelet Estimate Consistent w auto 05/06/19 08:20 Clumped Platelets Not Reportable 05/06/19 08:20 Plt Clumps, EDTA Not Reportable 05/06/19 08:20 Large Platelets Not Reportable 05/06/19 08:20 Giant Platelets Not Reportable 05/06/19 08:20 Platelet Satelliting Not Reportable 05/06/19 08:20 Plt Morphology Comment Not Reportable 05/06/19 08:20 RBC Morphology Not Reportable 05/06/19 08:20 Dimorphic RBCs Not Reportable 05/06/19 08:20 Polychromasia Few 05/06/19 08:20 Hypochromasia Not Reportable 05/06/19 08:20 Poikilocytosis Not Reportable 05/06/19 08:20 Anisocytosis Not Reportable 05/06/19 08:20 Microcytosis Not Reportable 05/06/19 08:20 Macrocytosis Not Reportable 05/06/19 08:20 Spherocytes Not Reportable 05/06/19 08:20 Pappenheimer Bodies Not Reportable 05/06/19 08:20 Sickle Cells Not Reportable 05/06/19 08:20 Target Cells Not Reportable 05/06/19 08:20 Tear Drop Cells Not Reportable 05/06/19 08:20 Ovalocytes Not Reportable 05/06/19 08:20 Helmet Cells Not Reportable 05/06/19 08:20 Webb-Edisto Bodies Not Reportable 05/06/19 08:20 Blaine Rings Not Reportable 05/06/19 08:20 Marly Cells Not Reportable 05/06/19 08:20 Bite Cells Not Reportable 05/06/19 08:20 Crenated Cell Not Reportable 05/06/19 08:20 Elliptocytes Few 05/06/19 08:20 Acanthocytes (Spur) Not Reportable 05/06/19 08:20 Rouleaux Not Reportable 05/06/19 08:20 Hemoglobin C Crystals Not Reportable 05/06/19 08:20 Schistocytes Not Reportable 05/06/19 08:20 Malaria parasites Not Reportable 05/06/19 08:20 Leo Bodies Not Reportable 05/06/19 08:20 Hem Pathologist Commnt No 05/06/19 08:20 Sodium 140 mmol/L (137-145) 05/06/19 08:20 Sodium 141 mmol/L (137-145) 05/06/19 08:20 Potassium 4.9 mmol/L (3.6-5.0) 05/06/19 08:20 Potassium 5.0 mmol/L (3.6-5.0) 05/06/19 08:20 Chloride 105.7 mmol/L (98-107) 05/06/19 08:20 Chloride 107.4 mmol/L (98-107) H 05/06/19 08:20 Carbon Dioxide 20 mmol/L (22-30) L 05/06/19 08:20 Carbon Dioxide 21 mmol/L (22-30) L 05/06/19 08:20 Anion Gap 18 mmol/L 05/06/19 08:20 Anion Gap 19 mmol/L 05/06/19 08:20 BUN 16 mg/dL (7-17) 05/06/19 08:20 BUN 16 mg/dL (7-17) 05/06/19 08:20 Creatinine 1.8 mg/dL (0.7-1.2) H 05/06/19 08:20 Creatinine 1.8 mg/dL (0.7-1.2) H 05/06/19 08:20 Estimated GFR 27 ml/min 05/06/19 08:20 Estimated GFR 27 ml/min 05/06/19 08:20 BUN/Creatinine Ratio 9 % 05/06/19 08:20 BUN/Creatinine Ratio 9 % 05/06/19 08:20 Glucose 97 mg/dL (65-100) 05/06/19 08:20 Glucose 100 mg/dL (65-100) 05/06/19 08:20 POC Glucose 98 (70-105) 05/07/19 08:02 Calcium 8.6 mg/dL (8.4-10.2) 05/06/19 08:20 Calcium 8.7 mg/dL (8.4-10.2) 05/06/19 08:20 Magnesium 1.60 mg/dL (1.7-2.3) L 05/05/19 04:35 Blood Type O POSITIVE 05/03/19 15:12 Antibody Screen Positive 05/03/19 15:12 Active Medications - Current Medications Current Medications: Generic Name Dose Route Start Last Admin Trade Name Freq PRN Reason Stop Dose Admin Acetaminophen 650 mg 05/03/19 14:08 Tylenol PO Q4H PRN Pain MILD(1-3)/Fever >100.5/BECERRA Atorvastatin Calcium 10 mg 05/04/19 22:00 05/06/19 21:22 Atorvastatin PO 10 mg QHS JONNATHAN Administration Bupropion HCl 150 mg 05/04/19 10:00 05/06/19 21:21 Wellbutrin Sr PO 150 mg BID JONNATHAN Administration Carbidopa/Levodopa 2 each 05/05/19 22:00 05/06/19 21:13 Sinemet PO 2 each QHS JONNATHAN Administration Cholestyramine Resin 4 gm 05/04/19 12:00 05/07/19 00:36 Questran PO 4 gm 0000,1200 JONNATHAN Administration Clonazepam 0.25 mg 05/05/19 14:00 05/06/19 09:31 Klonopin PO 0.25 mg DAILY JONNATHAN Administration Clonidine HCl 0.1 mg 05/04/19 09:18 05/04/19 09:28 Catapres PO 0.1 mg Q4HR PRN Administration Hypertension Dextrose 50 ml 05/03/19 14:08 D50w (25gm) Syringe IV Q30MIN PRN Hypoglycemia Protocol Diltiazem HCl 30 mg 05/04/19 10:00 05/07/19 03:50 Cardizem PO 30 mg Q6H JONNATHAN Administration Enoxaparin Sodium 30 mg 05/04/19 10:00 05/06/19 09:31 Enoxaparin SUB-Q 30 mg QDAY JONNATHAN Administration Gabapentin 200 mg 05/04/19 10:00 05/06/19 21:21 Gabapentin PO 200 mg BID JONNATHAN Administration Haloperidol Lactate 1 mg 05/05/19 16:25 05/07/19 03:19 Haldol IM 1 mg Q6H PRN Administration Agitation Cefepime HCl 2 gm in 100 mls @ 200 mls/hr 05/04/19 10:00 05/06/19 09:33 Cefepime/Ns 2 Gm/100 Ml IV 200 mls/hr Q24HR JONNATHAN Administration Protocol Sodium Chloride 1,000 mls @ 125 mls/hr 05/04/19 14:15 05/07/19 04:58 Nacl 0.9% 1000 Ml IV 125 mls/hr DIRECT JONNATHAN Administration Insulin Human Regular 0 units 05/03/19 16:30 05/06/19 21:35 Humulin R SUB-Q Not Given ACHS [facility] Protocol Levothyroxine Sodium 125 mcg 05/05/19 06:00 05/07/19 05:02 Synthroid PO 125 mcg DAILY@0600 JONNATHAN Administration Magnesium Oxide 400 mg 05/05/19 22:00 05/06/19 21:22 Mag-Ox PO 400 mg QHS JONNATHAN Administration Multivitamins/Minerals 1 each 05/04/19 10:00 05/06/19 09:32 Theragran-M Tab PO 1 each QDAY JONNATHAN Administration Ondansetron HCl 4 mg 05/03/19 14:08 Zofran IV Q8H PRN Nausea And Vomiting Oxybutynin Chloride 5 mg 05/04/19 14:00 05/06/19 19:55 Ditropan PO 5 mg TID JONNATHAN Administration Pantoprazole Sodium 40 mg 05/04/19 10:00 05/06/19 09:33 Protonix PO 40 mg QDAY JONNATHAN Administration Phenazopyridine HCl 100 mg 05/04/19 22:00 05/06/19 21:14 Pyridium PO 100 mg BID JONNATHAN Administration Quetiapine Fumarate 50 mg 05/04/19 10:00 05/06/19 09:32 Seroquel PO 50 mg DAILY JONNATHAN Administration Sodium Chloride 10 ml 05/03/19 22:00 05/06/19 21:23 Sodium Chloride Flush Syringe 10 Ml IV 10 ml BID JONNATHAN Administration Sodium Chloride 10 ml 05/03/19 14:08 Sodium Chloride Flush Syringe 10 Ml IV PRN PRN LINE FLUSH Tamsulosin HCl 0.4 mg 05/04/19 22:00 05/06/19 21:14 Flomax PO 0.4 mg QHS JONNATHAN Administration Venlafaxine HCl 150 mg 05/04/19 10:00 05/06/19 09:34 Effexor Xr PO 150 mg QDAY JONNATHAN Administration Nutrition/Malnutrition Assess - Dietary Evaluation Nutrition/Malnutrition Findings: Nutrition Notes Start: 05/04/19 10:20 Freq: Status: Active Protocol: Document 05/04/19 10:20 CW (Rec: 05/04/19 10:36 CW [id number]) Co-Sign 05/04/19 10:20 LP Nutrition Notes Need for Assessment generated from: MD Order,MST Initial or Follow up Assessment Current Diagnosis CKD(stage I-IV),Coronary Artery Disease,Diabetes, Hyperlipidemia Other Pertinent Diagnosis UTI, [place], Hypothyroidism Current Diet Consistent Carb Labs/Tests BUN 21 Cr 2.4 BG 142 Pertinent Medications Reviewed Height 5 ft 6 in Weight 64.6 kg Usual Body Weight 64.1 kg [place] Body Weight (kg) 59.09 BMI 22.9 Intake Prior to Admission Good Weight Status Appropriate Subjective/Other Information MD consult for MST screening. Calvin score of 18. Pt reports not having any swallowing/ chewing difficulties, wt changes, N/V/D, and having a good appetite. Approxiamtely 50% of dinner eaten on 2019 and 0% of breakfast on D/T dislike of food. However, pt could not state food preferences. Pt reported liking the Ensure supplement and drinking 100% of it. Suggest changing ONS to BID to increase PO intake Burn Absent Trauma Absent GI Symptoms None Current % PO Poor (25-49%) Minimum of two criteria No Reduced [employer] Strength Measurably Reduced (severe) #1 Nutrition Diagnosis Inadequate oral intake Etiology chronic illness and advanced age As Evidenced by Signs and Symptoms pt only consuming 1 Glucerna during breakfast Is patient on ventilator? No Is Patient Ambulatory and/or Out of Bed No REE-([facility]-confined to bed) 1360.296 Calculation Used for Recommendations Janki Braun Additional Notes Protein needs: 65 - 78 g (1 - 1.2 g/ kgBW) Fluid needs: 1 ml/kcal Nutrition Intervention Change Diet Order: Change to Cardiac/ Consistent CHO diet Add Supplement/Snack (indicate name/kcal Glucerna BID /protein ) Provides kCal: 440 Provides Protein (gm) 20 Goal #1 Meet at least 75% of pro/kcal needs via PO Anticipated Discharge Needs: Cardiac/ Consistent CHO diet Follow-Up By: 05/07/19 Additional Comments FU ONS tolerance and PO intake
[2019-05-07 10:36] LABS: Basophils % (Manual) 0 % (0.0-1.8); Platelet Estimate Consistent w Auto; Schistocytes Few; Total Cells Counted 100
[2019-05-07] MEDS: CEFEPIME/NS 2 GM/100 ML 2 GM/100 ML BAG IV SCH (10:49)
[2019-05-07] MEDS: INSULIN REGULAR, HUMAN 100 UNITS/1 ML SUB-Q SCH ×4 (10:51→22:26)
[2019-05-07] MEDS: PHENAZOPYRIDINE 100 MG TAB PO SCH ×2 (10:52→22:26)
[2019-05-07] MEDS: clonazePAM 0.5 MG TAB PO SCH (10:52)
[2019-05-07] MEDS: VENLAFAXINE XR 75 MG CAP PO SCH (10:53)
[2019-05-07] MEDS: ENOXAPARIN 30 MG/0.3 ML INJ SUB-Q SCH (10:54)
[2019-05-07] MEDS: buPROPion SR 150 MG TAB PO SCH ×2 (10:54→22:26)
[2019-05-07] MEDS: PANTOPRAZOLE 40 MG TAB PO SCH (10:54)
[2019-05-07] MEDS: GABAPENTIN 100 MG CAP PO SCH ×2 (10:54→22:24)
[2019-05-07] MEDS: MULTIVITAMINS,THER W-MINERALS TAB PO SCH (10:54)
[2019-05-07] MEDS: QUEtiapine 25 MG TAB PO SCH (10:54)
--- NOTE | 2019-05-07 12:02 | Progress Note ---
Assessment and Plan # Acute kidney injury: stable; baseline creatinine unknown, creatinine now stable at 1.7 with peak creatinine 2.4. Suspect SYLVIA in setting of pre-renal injury. CT reviewed with single kidney. Now off Bactrim as well. - continue fluids prn, supportive measures - avoid nephrotoxins - low salt diet - renally dose meds # Mild metabolic acidosis: stable, likely from SYLVIA # Anemia: follow counts, last hemoglobin 9.0, no indication for NEW currently # Hypertension: BP reasonable, continue current meds # Depression Subjective Date of service: 05/07/19 Interval history: No acute issues noted. Patient denies any concerns this AM, notes good urination. No dyspnea, no chest pain. Objective - Exam Narrative Exam: General appearance: well-developed, well-nourished EENT: ATNC, PERRL Neck: no JVD Respiratory: Present: Clear to Auscultation Cardiology: regular, S1S2 Gastrointestinal: normal, normoactive bowel sounds Integumentary: no rash Neurologic: disoriented, CN 3-12 intact Psychiatric: depressed - Vital Signs Vital signs: Vital Signs - 12hr 05/07/19 05/07/19 05/07/19 03:46 03:50 05:16 Temperature 97.9 F Pulse Rate 81 81 82 Respiratory 16 Rate Blood Pressure 149/62 138/52 O2 Sat by Pulse 92 94 Oximetry - Lab 05/07/19 07:31 05/07/19 07:31 Most recent lab results Calcium 8.8 mg/dL (8.4-10.2) 05/07/19 07:31 Magnesium 1.60 mg/dL (1.7-2.3) L 05/05/19 04:35 Medications & Allergies - Medications Allergies/Adverse Reactions: Allergies risperidone Adverse Reaction (Verified 05/02/19 17:43) Unknown Home Medications: Home Medications Medication Instructions Recorded Confirmed Last Taken Type Carbidopa/Levodopa ER 50-200 50 - 200 mg PO BID 04/29/19 05/03/19 Unknown History [Sinemet ER 50/200] Cholestyramine (with Sugar) 4 gm PO BID 04/29/19 05/03/19 Unknown History [Cholestyramine Packet] Flomax 0.4 mg PO HS 04/29/19 05/03/19 Unknown History Gabapentin 200 mg PO BID 04/29/19 05/03/19 Unknown History Magnesium Amino Acid Chelate 250 mg PO HS 04/29/19 05/06/19 Unknown History [Magnesium] Multivitamin [One-Daily 1 each PO DAILY 04/29/19 05/03/19 Unknown History Multi-Vitamin] Oxybutynin [Ditropan] 5 mg PO TID 04/29/19 05/03/19 Unknown History Pantoprazole [Protonix] 40 mg PO QDAY 04/29/19 05/03/19 Unknown History Synthroid 125 mcg PO QAM 04/29/19 05/03/19 Unknown History Venlafaxine HCl [Effexor Xr] 150 mg PO DAILY 04/29/19 05/03/19 Unknown History buPROPion SR [Wellbutrin Sr] 150 mg PO BID 04/29/19 05/03/19 Unknown History clonazePAM [KlonoPIN] 0.25 mg PO DAILY 04/29/19 05/03/19 Unknown History dilTIAZem [CarDIZEM] 30 mg PO Q6HR 04/29/19 05/03/19 Unknown History Bactrim DS TAB 1 tab PO BID 05/03/19 05/03/19 Unknown History Fish Oil 2,000 mg PO BID 05/03/19 05/03/19 Unknown History Lipitor 10 mg PO QHS 05/03/19 05/03/19 Unknown History Melatonin 5 mg PO QHS PRN 05/03/19 05/03/19 Unknown History Phenazopyridine [Pyridium] 100 mg PO BID 05/03/19 05/03/19 Unknown History SEROquel 50 mg PO DAILY 05/03/19 05/03/19 Unknown History cloNIDine 0.1 mg PO Q4HR PRN 05/03/19 05/03/19 Unknown History haloperidoL [Haldol] 5 mg PO Q6H PRN 05/03/19 05/03/19 Unknown History Active Medications: Generic Name Dose Route Start Last Admin Trade Name Freq PRN Reason Stop Dose Admin Acetaminophen 650 mg 05/03/19 14:08 Tylenol PO Q4H PRN Pain MILD(1-3)/Fever >100.5/BECERRA Atorvastatin Calcium 10 mg 05/04/19 22:00 05/06/19 21:22 Atorvastatin PO 10 mg QHS JONNATHAN Administration Bupropion HCl 150 mg 05/04/19 10:00 05/07/19 10:54 Wellbutrin Sr PO 150 mg BID JONNATHAN Administration Carbidopa/Levodopa 2 each 05/05/19 22:00 05/06/19 21:13 Sinemet PO 2 each QHS JONNATHAN Administration Cholestyramine Resin 4 gm 05/04/19 12:00 05/07/19 00:36 Questran PO 4 gm 0000,1200 JONNATHAN Administration Clonazepam 0.25 mg 05/05/19 14:00 05/07/19 10:52 Klonopin PO 0.25 mg DAILY JONNATHAN Administration Clonidine HCl 0.1 mg 05/04/19 09:18 05/04/19 09:28 Catapres PO 0.1 mg Q4HR PRN Administration Hypertension Dextrose 50 ml 05/03/19 14:08 D50w (25gm) Syringe IV Q30MIN PRN Hypoglycemia Protocol Diltiazem HCl 30 mg 05/04/19 10:00 05/07/19 03:50 Cardizem PO 30 mg Q6H JONNATHAN Administration Enoxaparin Sodium 30 mg 05/04/19 10:00 05/07/19 10:54 Enoxaparin SUB-Q 30 mg QDAY JONNATHAN Administration Gabapentin 200 mg 05/04/19 10:00 05/07/19 10:54 Gabapentin PO 200 mg BID JONNATHAN Administration Haloperidol Lactate 1 mg 05/05/19 16:25 05/07/19 03:19 Haldol IM 1 mg Q6H PRN Administration Agitation Cefepime HCl 2 gm in 100 mls @ 200 mls/hr 05/04/19 10:00 05/07/19 10:49 Cefepime/Ns 2 Gm/100 Ml IV 200 mls/hr Q24HR JONNATHAN Administration Protocol Sodium Chloride 1,000 mls @ 125 mls/hr 05/04/19 14:15 05/07/19 04:58 Nacl 0.9% 1000 Ml IV 125 mls/hr DIRECT JONNATHAN Administration Insulin Human Regular 0 units 05/03/19 16:30 05/07/19 10:51 Humulin R SUB-Q Not Given ACHS JONNATHAN Protocol Levothyroxine Sodium 125 mcg 05/05/19 06:00 05/07/19 05:02 Synthroid PO 125 mcg DAILY@0600 JONNATHAN Administration Magnesium Oxide 400 mg 05/05/19 22:00 05/06/19 21:22 Mag-Ox PO 400 mg QHS JONNATHAN Administration Multivitamins/Minerals 1 each 05/04/19 10:00 05/07/19 10:54 Theragran-M Tab PO 1 each QDAY JONNATHAN Administration Ondansetron HCl 4 mg 05/03/19 14:08 Zofran IV Q8H PRN Nausea And Vomiting Oxybutynin Chloride 5 mg 05/04/19 14:00 05/06/19 19:55 Ditropan PO 5 mg TID JONNATHAN Administration Pantoprazole Sodium 40 mg 05/04/19 10:00 05/07/19 10:54 Protonix PO 40 mg QDAY JONNATHAN Administration Phenazopyridine HCl 100 mg 05/04/19 22:00 05/07/19 10:52 Pyridium PO 100 mg BID JONNATHAN Administration Quetiapine Fumarate 50 mg 05/04/19 10:00 05/07/19 10:54 Seroquel PO 50 mg DAILY JONNATHAN Administration Sodium Chloride 10 ml 05/03/19 22:00 05/07/19 10:55 Sodium Chloride Flush Syringe 10 Ml IV 10 ml BID JONNATHAN Administration Sodium Chloride 10 ml 05/03/19 14:08 Sodium Chloride Flush Syringe 10 Ml IV PRN PRN LINE FLUSH Tamsulosin HCl 0.4 mg 05/04/19 22:00 05/06/19 21:14 Flomax PO 0.4 mg QHS JONNATHAN Administration Venlafaxine HCl 150 mg 05/04/19 10:00 05/07/19 10:53 Effexor Xr PO 150 mg QDAY JONNATHAN Administration
--- NOTE | 2019-05-07 12:04 | Progress Note ---
Subjective - Reason for Consult Consult date: 05/07/19 Reason for consult: manage mental health - Chief Complaint Chief complaint: During my interview this morning, the patient was lying in bed. The nurse is at bedside initially, stating the patient is confused. The patient is in restraints. She has her eye closed. She arouses when touched. She is smiling. She says she's feeling "alright." She says she "had a good night." When asked about hearing voices or seeing things, the patient replied, "sometimes I do. Sometimes I do hear things." She did not remember what it was she sometimes hear. She denies SI/HI. She says "no not myself" and then laughs. When asking about hurting someone else, she replied, "oh no." ROS: Constitutional: Negative for weight loss ENT: Negative for stridor Respiratory: Negative for cough or hemoptysis All other systems reviewed and are negative MENTAL STATUS General Appearance and Behavior: age appropriate, good eye contact, cooperative with questioning and polite Cooperation: Cooperative Psychomotor Behavior: within normal limits Mood: "good" Affect and affective range: Congruent with stated mood Thought Process: Impaired Speech: Normal tone and pace Suicidal Ideation: Denies SI Homicidal Ideation: Denies HI Hallucinations: Auditory Delusions: None elicited Insight and Judgment: Limited Memory: forgetful Orientation: Confused RECOMMENDATIONS MEDICATIONS: Increased Seroquel 100mg po daily Risks, benefits and alternatives of medications discussed with the patient, questions answered and consent obtained from patient. PSYCHOTHERAPY: Supportive psychotherapy provided MEDICAL: Per primary team DELIRIUM PRECAUTIONS: Please re-orient patient frequently, keep lights on during the day, and minimize benzodiazepines and opiates as these medications could worsen patient's confusion. ACTIVITIES ASSISTANT: Defer to primary DISPOSITION: The patient meet the requirement for acute inpatient treatment. The patient can transfer to an acute facility once medically clear. The daughter wants the patient in a facility closer to where they live. FOLLOW-UP: Will continue to follow until transferred. Mental Status Exam - Vital signs Last Vital Signs Temp 97.9 F 05/07/19 05:16 Pulse 82 05/07/19 05:16 Resp 16 05/07/19 05:16 BP 138/52 05/07/19 05:16 Pulse Ox 94 05/07/19 05:16
[2019-05-07] MEDS ORDERED: QUEtiapine 25 MG TAB PO SCH (12:05)
[2019-05-07] MEDS: OXYBUTYNIN 5 MG TAB PO SCH ×3 (12:05→20:44)
[2019-05-07] MEDS ORDERED: QUEtiapine 25 MG TAB PO ONE (13:00)
[2019-05-07] MEDS: MAGNESIUM OXIDE 400 MG TAB PO SCH (22:24)
[2019-05-07] MEDS: TAMSULOSIN 0.4 MG CAP PO SCH (22:25)
[2019-05-07] MEDS: CARBIDOPA/LEVODOPA 25-250 TAB PO SCH (22:25)
[2019-05-08] MEDS: CHOLESTYRAMINE (WITH SUGAR) 4 GM PACKET PO SCH ×2 (00:50→16:26)
[2019-05-08] MEDS: dilTIAZem 30 MG TAB PO SCH ×4 (04:15→22:12)
[2019-05-08] MEDS: LEVOTHYROXINE 125 MCG TAB PO SCH (05:16)
[2019-05-08 05:53] LABS: Eosinophils # (Auto) 0.1 K/mm3 (0.0-0.4); Eosinophils % (Auto) 3.5 % (0.0-4.3); Hematocrit 27.3 % (30.3-42.9); Hemoglobin 9.3 gm/dl (10.1-14.3); Lymphocytes # (Auto) 0.4 K/mm3 (1.2-5.4); Lymphocytes % (Auto) 14.9 % (13.4-35.0); Mean Corpuscular HGB Conc 34 % (30-34); Mean Corpuscular Volume 91 fl (79-97); Monocytes # (Auto) 0.4 K/mm3 (0.0-0.8); Monocytes % (Auto) 15.3 % (0.0-7.3); Platelet Count 220 K/mm3 (140-440); Red Blood Count 2.99 M/mm3 (3.65-5.03); Red Cell Distribution Width 17.3 % (13.2-15.2)
[2019-05-08 06:13] LABS: Calcium 8.8 mg/dL (8.4-10.2)
[2019-05-08] MEDS: VENLAFAXINE XR 75 MG CAP PO SCH (09:39)
[2019-05-08] MEDS: PANTOPRAZOLE 40 MG TAB PO SCH (09:39)
[2019-05-08] MEDS: ENOXAPARIN 30 MG/0.3 ML INJ SUB-Q SCH (09:39)
[2019-05-08] MEDS: GABAPENTIN 100 MG CAP PO SCH ×2 (09:39→22:12)
[2019-05-08] MEDS: buPROPion SR 150 MG TAB PO SCH ×2 (09:40→22:12)
[2019-05-08] MEDS: MULTIVITAMINS,THER W-MINERALS TAB PO SCH (09:40)
[2019-05-08] MEDS: OXYBUTYNIN 5 MG TAB PO SCH ×3 (09:40→19:40)
[2019-05-08] MEDS: PHENAZOPYRIDINE 100 MG TAB PO SCH ×2 (09:40→22:12)
[2019-05-08] MEDS: INSULIN REGULAR, HUMAN 100 UNITS/1 ML SUB-Q SCH ×4 (11:01→22:14)
[2019-05-08] MEDS: CEFEPIME/NS 2 GM/100 ML 2 GM/100 ML BAG IV SCH (11:10)
[2019-05-08] MEDS: clonazePAM 0.5 MG TAB PO SCH (11:10)
[2019-05-08] MEDS: QUEtiapine 100 MG TAB PO SCH (11:11)
[2019-05-08] MEDS: HALOPERIDOL LACTATE 5 MG/1 ML INJ IM PRN (11:35)
--- NOTE | 2019-05-08 15:25 | Progress Note ---
Assessment and Plan Assessment and plan: Sepsis due to E. coli. Patient meets criteria given tachycardia, leukopenia and diagnosis of UTI. Continue Cefepime Acute hypoxic respiratory failure. UTI due to E. coli. ARF. I suspect patient has underlying CKD. We do not have baseline creatinine to compare. CT scan showed no evidence of obstruction. Consult nephrology. Diabetes mellitus type 2. Continue Accu-Cheks and sliding scale insulin. Hyperlipidemia. Continue statin. Hypothyroidism. Continue Synthroid. Check TSH levels. Parkinson's disease. Resumed home medications, Sinemet History Interval history: Patient with sepsis due to UTI Hospitalist Physical - Physical exam Narrative exam: GEN: Not in acute distress, lying in bed, obese HEENT: Normocephalic, atraumatic, Neck: supple, No JVD Lungs: Clear to auscultation bilat, no wheeze, heart;S1 and S2 reg, no murmurs, rubs or gallop Abd:soft, non tender, non distended, normal bowel sounds Ext: No edema, no clubbing, no cyanosis Neuro: Awake,alert, oriented X 3, no focal neurological signs - Constitutional Vitals: Temp Pulse Resp BP Pulse Ox 98.4 F 89 18 148/46 93 05/08/19 04:49 05/08/19 11:11 05/08/19 11:09 05/08/19 11:11 05/08/19 11:09 General appearance: Present: no acute distress, well-nourished Results - Labs CBC & Chem 7: 05/08/19 04:58 05/08/19 04:58 Labs: Laboratory Last Values WBC 2.5 K/mm3 (4.5-11.0) L 05/08/19 04:58 RBC 2.99 M/mm3 (3.65-5.03) L 05/08/19 04:58 Hgb 9.3 gm/dl (10.1-14.3) L 05/08/19 04:58 Hct 27.3 % (30.3-42.9) L 05/08/19 04:58 MCV 91 fl (79-97) 05/08/19 04:58 MCH 31 pg (28-32) 05/08/19 04:58 MCHC 34 % (30-34) 05/08/19 04:58 RDW 17.3 % (13.2-15.2) H 05/08/19 04:58 Plt Count 220 K/mm3 (140-440) 05/08/19 04:58 Lymph % (Auto) 14.9 % (13.4-35.0) 05/08/19 04:58 Hopkins % (Auto) 15.3 % (0.0-7.3) H 05/08/19 04:58 Eos % (Auto) 3.5 % (0.0-4.3) 05/08/19 04:58 Baso % (Auto) 1.0 % (0.0-1.8) 05/08/19 04:58 Lymph # 0.4 K/mm3 (1.2-5.4) L 05/08/19 04:58 Hopkins # 0.4 K/mm3 (0.0-0.8) 05/08/19 04:58 Eos # 0.1 K/mm3 (0.0-0.4) 05/08/19 04:58 Baso # 0.0 K/mm3 (0.0-0.1) 05/08/19 04:58 Add Manual Diff Complete 05/07/19 07:31 Total Counted 100 05/07/19 07:31 Seg Neutrophils % 65.3 % (40.0-70.0) 05/08/19 04:58 Seg Neuts % (Manual) 81.0 % (40.0-70.0) H 05/07/19 07:31 Band Neutrophils % 2.0 % 05/07/19 07:31 Lymphocytes % (Manual) 9.0 % (13.4-35.0) L 05/07/19 07:31 Reactive Lymphs % (Man) 0 % 05/07/19 07:31 Monocytes % (Manual) 6.0 % (0.0-7.3) 05/07/19 07:31 Eosinophils % (Manual) 2.0 % (0.0-4.3) 05/07/19 07:31 Basophils % (Manual) 0 % (0.0-1.8) 05/07/19 07:31 Metamyelocytes % 0 % 05/07/19 07:31 Myelocytes % 0 % 05/07/19 07:31 Promyelocytes % 0 % 05/07/19 07:31 Blast Cells % 0 % 05/07/19 07:31 Nucleated RBC % Not Reportable 05/07/19 07:31 Seg Neutrophils # 1.6 K/mm3 (1.8-7.7) L 05/08/19 04:58 Seg Neutrophils # Man 1.8 K/mm3 (1.8-7.7) 05/07/19 07:31 Band Neutrophils # 0.0 K/mm3 05/07/19 07:31 Lymphocytes # (Manual) 0.2 K/mm3 (1.2-5.4) L 05/07/19 07:31 Abs React Lymphs (Man) 0.0 K/mm3 05/07/19 07:31 Monocytes # (Manual) 0.1 K/mm3 (0.0-0.8) 05/07/19 07:31 Eosinophils # (Manual) 0.0 K/mm3 (0.0-0.4) 05/07/19 07:31 Basophils # (Manual) 0.0 K/mm3 (0.0-0.1) 05/07/19 07:31 Metamyelocytes # 0.0 K/mm3 05/07/19 07:31 Myelocytes # 0.0 K/mm3 05/07/19 07:31 Promyelocytes # 0.0 K/mm3 05/07/19 07:31 Blast Cells # 0.0 K/mm3 05/07/19 07:31 WBC Morphology Not Reportable 05/07/19 07:31 Hypersegmented Neuts Not Reportable 05/07/19 07:31 Hyposegmented Neuts Not Reportable 05/07/19 07:31 Hypogranular Neuts Not Reportable 05/07/19 07:31 Smudge Cells Not Reportable 05/07/19 07:31 Toxic Granulation Not Reportable 05/07/19 07:31 Toxic Vacuolation Not Reportable 05/07/19 07:31 Dohle Bodies Not Reportable 05/07/19 07:31 Pelger-Huet Anomaly Not Reportable 05/07/19 07:31 Blue Rods Not Reportable 05/07/19 07:31 Platelet Estimate Consistent w auto 05/07/19 07:31 Clumped Platelets Not Reportable 05/07/19 07:31 Plt Clumps, EDTA Not Reportable 05/07/19 07:31 Large Platelets Not Reportable 05/07/19 07:31 Giant Platelets Not Reportable 05/07/19 07:31 Platelet Satelliting Not Reportable 05/07/19 07:31 Plt Morphology Comment Not Reportable 05/07/19 07:31 RBC Morphology Not Reportable 05/07/19 07:31 Dimorphic RBCs Not Reportable 05/07/19 07:31 Polychromasia Few 05/07/19 07:31 Hypochromasia Not Reportable 05/07/19 07:31 Poikilocytosis Not Reportable 05/07/19 07:31 Anisocytosis Not Reportable 05/07/19 07:31 Microcytosis Not Reportable 05/07/19 07:31 Macrocytosis Not Reportable 05/07/19 07:31 Spherocytes Not Reportable 05/07/19 07:31 Pappenheimer Bodies Not Reportable 05/07/19 07:31 Sickle Cells Not Reportable 05/07/19 07:31 Target Cells Not Reportable 05/07/19 07:31 Tear Drop Cells Not Reportable 05/07/19 07:31 Ovalocytes Not Reportable 05/07/19 07:31 Helmet Cells Not Reportable 05/07/19 07:31 Webb-[place] Bodies Not Reportable 05/07/19 07:31 [place] Rings Not Reportable 05/07/19 07:31 [place] Cells Not Reportable 05/07/19 07:31 Bite Cells Not Reportable 05/07/19 07:31 Crenated Cell Not Reportable 05/07/19 07:31 Elliptocytes Few 05/07/19 07:31 Acanthocytes (Spur) Not Reportable 05/07/19 07:31 Rouleaux Not Reportable 05/07/19 07:31 Hemoglobin C Crystals Not Reportable 05/07/19 07:31 Schistocytes Few 05/07/19 07:31 Malaria parasites Not Reportable 05/07/19 07:31 Leo Bodies Not Reportable 05/07/19 07:31 Hem Pathologist Commnt No 05/07/19 07:31 Sodium 139 mmol/L (137-145) 05/08/19 04:58 Potassium 4.3 mmol/L (3.6-5.0) 05/08/19 04:58 Chloride 106.0 mmol/L (98-107) 05/08/19 04:58 Carbon Dioxide 22 mmol/L (22-30) 05/08/19 04:58 Anion Gap 15 mmol/L 05/08/19 04:58 BUN 17 mg/dL (7-17) 05/08/19 04:58 Creatinine 1.7 mg/dL (0.7-1.2) H 05/08/19 04:58 Estimated GFR 29 ml/min 05/08/19 04:58 BUN/Creatinine Ratio 10 % 05/08/19 04:58 Glucose 114 mg/dL (65-100) H 05/08/19 04:58 POC Glucose 114 (70-105) H 05/08/19 11:46 Calcium 8.8 mg/dL (8.4-10.2) 05/08/19 04:58 Magnesium 1.60 mg/dL (1.7-2.3) L 05/05/19 04:35 Blood Type O POSITIVE 05/03/19 15:12 Antibody Screen Positive 05/03/19 15:12 Active Medications - Current Medications Current Medications: Generic Name Dose Route Start Last Admin Trade Name Freq PRN Reason Stop Dose Admin Acetaminophen 650 mg 05/03/19 14:08 Tylenol PO Q4H PRN Pain MILD(1-3)/Fever >100.5/BECERRA Atorvastatin Calcium 10 mg 05/04/19 22:00 05/07/19 22:25 Atorvastatin PO 10 mg QHS JONNATHAN Administration Bupropion HCl 150 mg 05/04/19 10:00 05/08/19 09:40 Wellbutrin Sr PO 150 mg BID JONNATHAN Administration Carbidopa/Levodopa 2 each 05/05/19 22:00 05/07/19 22:25 Sinemet PO 2 each QHS JONNATHAN Administration Cholestyramine Resin 4 gm 05/04/19 12:00 05/08/19 00:50 Questran PO 4 gm 0000,1200 JONNATHAN Administration Clonazepam 0.25 mg 05/05/19 14:00 05/08/19 11:10 Klonopin PO 0.25 mg DAILY JONNATHAN Administration Clonidine HCl 0.1 mg 05/04/19 09:18 05/04/19 09:28 Catapres PO 0.1 mg Q4HR PRN Administration Hypertension Dextrose 50 ml 05/03/19 14:08 D50w (25gm) Syringe IV Q30MIN PRN Hypoglycemia Protocol Diltiazem HCl 30 mg 05/04/19 10:00 05/08/19 11:11 Cardizem PO 30 mg Q6H JONNATHAN Administration Enoxaparin Sodium 30 mg 05/04/19 10:00 05/08/19 09:39 Enoxaparin SUB-Q 30 mg QDAY JONNATHAN Administration Gabapentin 200 mg 05/04/19 10:00 05/08/19 09:39 Gabapentin PO 200 mg BID JONNATHAN Administration Haloperidol Lactate 1 mg 05/05/19 16:25 05/08/19 11:35 Haldol IM 1 mg Q6H PRN Administration Agitation Cefepime HCl 2 gm in 100 mls @ 200 mls/hr 05/04/19 10:00 05/08/19 11:10 Cefepime/Ns 2 Gm/100 Ml IV 200 mls/hr Q24HR JONNATHAN Administration Protocol Sodium Chloride 1,000 mls @ 75 mls/hr 05/07/19 13:00 05/07/19 23:02 Nacl 0.9% 1000 Ml IV 75 mls/hr DIRECT JONNATHAN Administration Insulin Human Regular 0 units 05/03/19 16:30 05/08/19 12:07 Humulin R SUB-Q Not Given ACHS [facility] Protocol Levothyroxine Sodium 125 mcg 05/05/19 06:00 05/08/19 05:16 Synthroid PO 125 mcg DAILY@0600 JONNATHAN Administration Magnesium Oxide 400 mg 05/05/19 22:00 05/07/19 22:24 Mag-Ox PO 400 mg QHS JONNATHAN Administration Multivitamins/Minerals 1 each 05/04/19 10:00 05/08/19 09:40 Theragran-M Tab PO 1 each QDAY JONNATHAN Administration Ondansetron HCl 4 mg 05/03/19 14:08 Zofran IV Q8H PRN Nausea And Vomiting Oxybutynin Chloride 5 mg 05/04/19 14:00 05/08/19 09:40 Ditropan PO 5 mg TID JONNATHAN Administration Pantoprazole Sodium 40 mg 05/04/19 10:00 05/08/19 09:39 Protonix PO 40 mg QDAY JONNATHAN Administration Phenazopyridine HCl 100 mg 05/04/19 22:00 05/08/19 09:40 Pyridium PO 100 mg BID JONNATHAN Administration Quetiapine Fumarate 100 mg 05/08/19 10:00 05/08/19 11:11 Seroquel PO 100 mg DAILY JONNATHAN Administration Sodium Chloride 10 ml 05/03/19 22:00 05/08/19 11:49 Sodium Chloride Flush Syringe 10 Ml IV 10 ml BID JONNATHAN Administration Sodium Chloride 10 ml 05/03/19 14:08 Sodium Chloride Flush Syringe 10 Ml IV PRN PRN LINE FLUSH Tamsulosin HCl 0.4 mg 05/04/19 22:00 05/07/19 22:25 Flomax PO 0.4 mg QHS JONNATHAN Administration Venlafaxine HCl 150 mg 05/04/19 10:00 05/08/19 09:39 Effexor Xr PO 150 mg QDAY JONNATHAN Administration Nutrition/Malnutrition Assess - Dietary Evaluation Nutrition/Malnutrition Findings: Nutrition Notes Start: 05/04/19 10:20 Freq: Status: Active Protocol: Document 05/07/19 16:27 ANTONIO (Rec: 05/07/19 16:32 ANTONIO [email or web address]) Nutrition Notes Initial or Follow up Reassessment Current Diagnosis Diabetes,Sepsis,Hyperlipidemia Other Pertinent Diagnosis Parkinson's dz Current Diet Cardiac/Consistent CHO + Glucerna BID Labs/Tests Cr 1.7 Height 5 ft 6 in Weight 64 kg [place] Body Weight (kg) 59.09 BMI 22.7 Subjective/Other Information Pt receiving PT at time of visit (13:27). She has consumed 54% of meals since last assessment. Percent of energy/protein needs met: 73% energy 71% pro (does not include ONS intake) Burn Absent Trauma Absent #1 Nutrition Diagnosis Inadequate oral intake As Evidenced by Signs and Symptoms PO intakes meeting >50% of energy and pro needs Diagnosis Progress(for reassessment Improved documentation) Is patient on ventilator? No Is Patient Ambulatory and/or Out of Bed Yes REE-([place]-St. Jeor-ambulatory/OOB) [ [id number] [id number]] Calculation Used for Recommendations [facility] Additional Notes Pro needs 1-1.2g/k-77g/ day Fluid needs 1ml/kcal Nutrition Intervention Change Diet Order: Continue current diet order Add Supplement/Snack (indicate name/kcal Glucerna BID /protein ) Provides kCal: 440 Provides Protein (gm) 20 Goal #1 PO intake of meals plus ONS to meet at least 75% energy and pro needs Goal #2 Wt maintenance Follow-Up By: 05/11/19 Additional Comments F/U: intakes, wt
--- NOTE | 2019-05-08 15:25 | Progress Note ---
Subjective - Reason for Consult Consult date: 05/08/19 Reason for consult: psychiatric assessment - Chief Complaint Chief complaint: During my interview this morning, the patient was lying in bed aaox1. family at bedside. The patient appear restless and anxious. The patient noted fidgeting and picking at the sheets the patient denies suicidal or homicidal ideation. The patient denies visual or auditory hallucination, however the family at bedside states, "she has been seeing things and people". The patient is noted confused and is unable to answer most questions. The family report that the patient has not been eating or sleeping well. ROS: Constitutional: Negative for weight loss ENT: Negative for stridor Respiratory: Negative for cough or hemoptysis All other systems reviewed and are negative MENTAL STATUS General Appearance and Behavior: age appropriate, good eye contact, cooperative with questioning and polite Cooperation: Cooperative Psychomotor Behavior: within normal limits Mood: "ok" Affect and affective range: Congruent with stated mood Thought Process: Impaired Speech: Normal tone and pace Suicidal Ideation: Denies SI Homicidal Ideation: Denies HI Hallucinations: Auditory Delusions: None elicited Insight and Judgment: Limited Memory: forgetful Orientation: Confused RECOMMENDATIONS MEDICATIONS: continue medication on chart Risks, benefits and alternatives of medications discussed with the patient, questions answered and consent obtained from patient. PSYCHOTHERAPY: Supportive psychotherapy provided MEDICAL: Per primary team DELIRIUM PRECAUTIONS: Please re-orient patient frequently, keep lights on during the day, and minimize benzodiazepines and opiates as these medications could worsen patient's confusion. RN POST PARTUM: Defer to primary DISPOSITION: The patient meet the requirement for acute inpatient treatment. The patient can transfer to an acute facility once medically clear. The daughter wants the patient in a facility closer to where they live. FOLLOW-UP: Will continue to follow until transferred. Mental Status Exam - Vital signs Last Vital Signs Temp 98.4 F 05/08/19 04:49 Pulse 89 05/08/19 11:11 Resp 18 05/08/19 11:09 BP 148/46 05/08/19 11:11 Pulse Ox 93 05/08/19 11:09
--- NOTE | 2019-05-08 15:58 | Progress Note ---
Assessment and Plan # Acute kidney injury: stable; baseline creatinine unknown, creatinine now stable at 1.7 with peak creatinine 2.4. Suspect SYLVIA in setting of pre-renal injury. CT reviewed with single kidney. Now off Bactrim as well. - continue fluids prn, supportive measures - avoid nephrotoxins - low salt diet - renally dose meds # Mild metabolic acidosis: stable, likely from SYLVIA # Anemia: follow counts, last hemoglobin 9.3, no indication for NEW currently # Hypertension: BP reasonable, continue current meds # Depression: appreciate psych input Subjective Date of service: 05/08/19 Interval history: No acute issues noted. Patient denies any concerns this AM, notes good urination. No dyspnea, no chest pain. Objective - Exam Narrative Exam: General appearance: well-developed, well-nourished EENT: ATNC, PERRL Neck: no JVD Respiratory: Present: Clear to Auscultation Cardiology: regular, S1S2 Gastrointestinal: normal, normoactive bowel sounds Integumentary: no rash Neurologic: disoriented, CN 3-12 intact Psychiatric: depressed - Vital Signs Vital signs: Vital Signs - 12hr 05/08/19 05/08/19 05/08/19 04:15 04:49 09:25 Temperature 98.4 F Pulse Rate 78 78 Respiratory 20 Rate Blood Pressure 149/54 149/54 O2 Sat by Pulse 96 97 Oximetry 05/08/19 05/08/19 11:09 11:11 Temperature Pulse Rate 89 89 Respiratory 18 Rate Blood Pressure 148/46 148/46 O2 Sat by Pulse 93 Oximetry - Lab 05/08/19 04:58 05/08/19 04:58 Most recent lab results Calcium 8.8 mg/dL (8.4-10.2) 05/08/19 04:58 Magnesium 1.60 mg/dL (1.7-2.3) L 05/05/19 04:35 Medications & Allergies - Medications Allergies/Adverse Reactions: Allergies risperidone Adverse Reaction (Verified 05/02/19 17:43) Unknown Home Medications: Home Medications Medication Instructions Recorded Confirmed Last Taken Type Carbidopa/Levodopa ER 50-200 50 - 200 mg PO BID 04/29/19 05/03/19 Unknown History [Sinemet ER 50/200] Cholestyramine (with Sugar) 4 gm PO BID 04/29/19 05/03/19 Unknown History [Cholestyramine Packet] Flomax 0.4 mg PO HS 04/29/19 05/03/19 Unknown History Gabapentin 200 mg PO BID 04/29/19 05/03/19 Unknown History Magnesium Amino Acid Chelate 250 mg PO HS 04/29/19 05/06/19 Unknown History [Magnesium] Multivitamin [One-Daily 1 each PO DAILY 04/29/19 05/03/19 Unknown History Multi-Vitamin] Oxybutynin [Ditropan] 5 mg PO TID 04/29/19 05/03/19 Unknown History Pantoprazole [Protonix] 40 mg PO QDAY 04/29/19 05/03/19 Unknown History Synthroid 125 mcg PO QAM 04/29/19 05/03/19 Unknown History Venlafaxine HCl [Effexor Xr] 150 mg PO DAILY 04/29/19 05/03/19 Unknown History buPROPion SR [Wellbutrin Sr] 150 mg PO BID 04/29/19 05/03/19 Unknown History clonazePAM [KlonoPIN] 0.25 mg PO DAILY 04/29/19 05/03/19 Unknown History dilTIAZem [CarDIZEM] 30 mg PO Q6HR 04/29/19 05/03/19 Unknown History Bactrim DS TAB 1 tab PO BID 05/03/19 05/03/19 Unknown History Fish Oil 2,000 mg PO BID 05/03/19 05/03/19 Unknown History Lipitor 10 mg PO QHS 05/03/19 05/03/19 Unknown History Melatonin 5 mg PO QHS PRN 05/03/19 05/03/19 Unknown History Phenazopyridine [Pyridium] 100 mg PO BID 05/03/19 05/03/19 Unknown History SEROquel 50 mg PO DAILY 05/03/19 05/03/19 Unknown History cloNIDine 0.1 mg PO Q4HR PRN 05/03/19 05/03/19 Unknown History haloperidoL [Haldol] 5 mg PO Q6H PRN 05/03/19 05/03/19 Unknown History Active Medications: Generic Name Dose Route Start Last Admin Trade Name Freq PRN Reason Stop Dose Admin Acetaminophen 650 mg 05/03/19 14:08 Tylenol PO Q4H PRN Pain MILD(1-3)/Fever >100.5/BECERRA Atorvastatin Calcium 10 mg 05/04/19 22:00 05/07/19 22:25 Atorvastatin PO 10 mg QHS JONNATHAN Administration Bupropion HCl 150 mg 05/04/19 10:00 05/08/19 09:40 Wellbutrin Sr PO 150 mg BID JONNATHAN Administration Carbidopa/Levodopa 2 each 05/05/19 22:00 05/07/19 22:25 Sinemet PO 2 each QHS JONNATHAN Administration Cholestyramine Resin 4 gm 05/04/19 12:00 05/08/19 00:50 Questran PO 4 gm 0000,1200 JONNATHAN Administration Clonazepam 0.25 mg 05/05/19 14:00 05/08/19 11:10 Klonopin PO 0.25 mg DAILY JONNATHAN Administration Clonidine HCl 0.1 mg 05/04/19 09:18 05/04/19 09:28 Catapres PO 0.1 mg Q4HR PRN Administration Hypertension Dextrose 50 ml 05/03/19 14:08 D50w (25gm) Syringe IV Q30MIN PRN Hypoglycemia Protocol Diltiazem HCl 30 mg 05/04/19 10:00 05/08/19 11:11 Cardizem PO 30 mg Q6H JONNATHAN Administration Enoxaparin Sodium 30 mg 05/04/19 10:00 05/08/19 09:39 Enoxaparin SUB-Q 30 mg QDAY JONNATHAN Administration Gabapentin 200 mg 05/04/19 10:00 05/08/19 09:39 Gabapentin PO 200 mg BID JONNATHAN Administration Haloperidol Lactate 1 mg 05/05/19 16:25 05/08/19 11:35 Haldol IM 1 mg Q6H PRN Administration Agitation Cefepime HCl 2 gm in 100 mls @ 200 mls/hr 05/04/19 10:00 05/08/19 11:10 Cefepime/Ns 2 Gm/100 Ml IV 200 mls/hr Q24HR JONNATHAN Administration Protocol Sodium Chloride 1,000 mls @ 75 mls/hr 05/07/19 13:00 05/07/19 23:02 Nacl 0.9% 1000 Ml IV 75 mls/hr DIRECT JONNATHAN Administration Insulin Human Regular 0 units 05/03/19 16:30 05/08/19 12:07 Humulin R SUB-Q Not Given ACHS JONNATHAN Protocol Levothyroxine Sodium 125 mcg 05/05/19 06:00 05/08/19 05:16 Synthroid PO 125 mcg DAILY@0600 JONNATHAN Administration Magnesium Oxide 400 mg 05/05/19 22:00 05/07/19 22:24 Mag-Ox PO 400 mg QHS JONNATHAN Administration Multivitamins/Minerals 1 each 05/04/19 10:00 05/08/19 09:40 Theragran-M Tab PO 1 each QDAY JONNATHAN Administration Ondansetron HCl 4 mg 05/03/19 14:08 Zofran IV Q8H PRN Nausea And Vomiting Oxybutynin Chloride 5 mg 05/04/19 14:00 05/08/19 09:40 Ditropan PO 5 mg TID JONNATHAN Administration Pantoprazole Sodium 40 mg 05/04/19 10:00 05/08/19 09:39 Protonix PO 40 mg QDAY JONNATHAN Administration Phenazopyridine HCl 100 mg 05/04/19 22:00 05/08/19 09:40 Pyridium PO 100 mg BID JONNATHAN Administration Quetiapine Fumarate 100 mg 05/08/19 10:00 05/08/19 11:11 Seroquel PO 100 mg DAILY JONNATHAN Administration Sodium Chloride 10 ml 05/03/19 22:00 05/08/19 11:49 Sodium Chloride Flush Syringe 10 Ml IV 10 ml BID JONNATHAN Administration Sodium Chloride 10 ml 05/03/19 14:08 Sodium Chloride Flush Syringe 10 Ml IV PRN PRN LINE FLUSH Tamsulosin HCl 0.4 mg 05/04/19 22:00 05/07/19 22:25 Flomax PO 0.4 mg QHS JONNATHAN Administration Venlafaxine HCl 150 mg 05/04/19 10:00 05/08/19 09:39 Effexor Xr PO 150 mg QDAY JONNATHAN Administration
--- NOTE | 2019-05-08 16:38 | Event Note ---
Date: 05/08/19 Called by Nurse that patient states she is suicidal. Will place on suicide precautions with 1:1 sitter. I asked Nurse to inform Psych, already following patient.
[2019-05-08] MEDS: SODIUM CHLORIDE 0.9% 1000 ML 1,000 ML IV SCH (19:40)
[2019-05-08] MEDS: TAMSULOSIN 0.4 MG CAP PO SCH (22:13)
[2019-05-08] MEDS: MAGNESIUM OXIDE 400 MG TAB PO SCH (22:13)
[2019-05-08] MEDS: CARBIDOPA/LEVODOPA 25-250 TAB PO SCH (22:17)
[2019-05-09] MEDS: CHOLESTYRAMINE (WITH SUGAR) 4 GM PACKET PO SCH ×2 (02:40→12:16)
[2019-05-09] MEDS: HALOPERIDOL LACTATE 5 MG/1 ML INJ IM PRN (03:23)
[2019-05-09] MEDS: dilTIAZem 30 MG TAB PO SCH ×2 (05:55→12:38)
[2019-05-09] MEDS: LEVOTHYROXINE 125 MCG TAB PO SCH (05:56)
[2019-05-09 05:57] VITALS: BP 157/70
[2019-05-09] MEDS: OXYBUTYNIN 5 MG TAB PO SCH (08:00)
[2019-05-09] MEDS: INSULIN REGULAR, HUMAN 100 UNITS/1 ML SUB-Q SCH ×2 (08:34→13:29)
--- NOTE | 2019-05-09 10:11 | Event Note ---
Date: 05/09/19 Patient is medically stable to discharge to Psych.
--- NOTE | 2019-05-09 10:18 | Discharge Summary ---
Providers - Providers Date of Admission: 05/03/19 11:57 Date of discharge: 05/09/19 Attending physician: SIN ANTHONY 05/03/19 17:39 Consult to Dietitian/Nutrition [CONS] Routine Physician Instructions: Reason For Exam: Reason for Consult: not sure of wt loss 05/04/19 08:43 Consult to Physician [CONS] Routine Comment: Consulting Provider: MISBAH GALLARDO Physician Instructions: Reason For Exam: ARF 05/04/19 11:15 Occupational Therapy Evaluate and Treat [CONS] Routine Comment: Reason For Exam: weakness Physical Therapy Evaluation and Treat [CONS] Routine Comment: Reason For Exam: weakness 05/04/19 12:42 psychiatry consult [Consult to Mental Health] [CONS] Routine Reason For Exam: f/u Primary care physician: LIMA FERNÁNDEZ MD Hospitalization Condition: Fair Disposition: DC-01 TO HOME OR SELFCARE Core Measure Documentation - Palliative Care Palliative Care/ Comfort Measures: Not Applicable - Core Measures Any of the following diagnoses?: none Exam - Constitutional Vitals: Temp Pulse Resp BP Pulse Ox 97.5 F L 83 20 157/70 96 05/09/19 05:47 05/09/19 05:55 05/09/19 05:47 05/09/19 05:55 05/09/19 05:47 Plan Diet: low fat, low cholesterol, low salt, diabetic Plan of Treatment: 1. Follow up with PCP in 1 week. Follow up with: LIMA FERNÁNDEZ MD [Primary Care Provider] - 7 Days
--- NOTE | 2019-05-09 11:22 | Progress Note ---
Assessment and Plan # Acute kidney injury: stable; baseline creatinine unknown, creatinine now stable at 1.7 with peak creatinine 2.4. Suspect SYLVIA in setting of pre-renal injury. CT reviewed with single kidney. Now off Bactrim as well. - continue fluids prn, supportive measures - avoid nephrotoxins - low salt diet - renally dose meds # Mild metabolic acidosis: stable, likely from SYLVIA # Anemia: follow counts, last hemoglobin 9.3, no indication for NEW currently # Hypertension: BP reasonable, continue current meds # Depression: appreciate psych input. To be admitted to psych; no acute concerns from renal perspective and will follow prn. Subjective Date of service: 05/09/19 Interval history: Noted to be suicidal, has 1:1 sitter now. Patient denies any concerns this AM, notes good urination. No dyspnea, no chest pain. Objective - Exam Narrative Exam: General appearance: well-developed, well-nourished EENT: ATNC, PERRL Neck: no JVD Respiratory: Present: Clear to Auscultation Cardiology: regular, S1S2 Gastrointestinal: normal, normoactive bowel sounds Integumentary: no rash Neurologic: disoriented, CN 3-12 intact Psychiatric: depressed - Vital Signs Vital signs: Vital Signs - 12hr 05/09/19 05/09/19 05:47 05:55 Temperature 97.5 F L Pulse Rate 78 83 Respiratory 20 Rate Blood Pressure 157/70 157/70 O2 Sat by Pulse 96 Oximetry - Lab 05/08/19 04:58 05/08/19 04:58 Most recent lab results Calcium 8.8 mg/dL (8.4-10.2) 05/08/19 04:58 Magnesium 1.60 mg/dL (1.7-2.3) L 05/05/19 04:35 Medications & Allergies - Medications Allergies/Adverse Reactions: Allergies risperidone Adverse Reaction (Verified 05/02/19 17:43) Unknown Home Medications: Home Medications Medication Instructions Recorded Confirmed Last Taken Type Carbidopa/Levodopa ER 50-200 50 - 200 mg PO BID 04/29/19 05/03/19 Unknown History [Sinemet ER 50/200] Cholestyramine (with Sugar) 4 gm PO BID 04/29/19 05/03/19 Unknown History [Cholestyramine Packet] Flomax 0.4 mg PO HS 04/29/19 05/03/19 Unknown History Gabapentin 200 mg PO BID 04/29/19 05/03/19 Unknown History Magnesium Amino Acid Chelate 250 mg PO HS 04/29/19 05/06/19 Unknown History [Magnesium] Multivitamin [One-Daily 1 each PO DAILY 04/29/19 05/03/19 Unknown History Multi-Vitamin] Oxybutynin [Ditropan] 5 mg PO TID 04/29/19 05/03/19 Unknown History Pantoprazole [Protonix TAB] 40 mg PO QDAY 04/29/19 05/03/19 Unknown History Synthroid 125 mcg PO QAM 04/29/19 05/03/19 Unknown History Venlafaxine HCl [Effexor Xr] 150 mg PO DAILY 04/29/19 05/03/19 Unknown History buPROPion SR [Wellbutrin SR] 150 mg PO BID 04/29/19 05/03/19 Unknown History clonazePAM [KlonoPIN] 0.25 mg PO DAILY 04/29/19 05/03/19 Unknown History dilTIAZem [Cardizem] 30 mg PO Q6HR 04/29/19 05/03/19 Unknown History Fish Oil 2,000 mg PO BID 05/03/19 05/03/19 Unknown History Lipitor 10 mg PO QHS 05/03/19 05/03/19 Unknown History Melatonin 5 mg PO QHS PRN 05/03/19 05/03/19 Unknown History Phenazopyridine [Pyridium] 100 mg PO BID 05/03/19 05/03/19 Unknown History SEROquel 50 mg PO DAILY 05/03/19 05/03/19 Unknown History cloNIDine 0.1 mg PO Q4HR PRN 05/03/19 05/03/19 Unknown History haloperidoL [Haldol] 5 mg PO Q6H PRN 05/03/19 05/03/19 Unknown History cefUROXime [Ceftin] 500 mg PO Q12H 2 Days #4 tablet 05/09/19 Unknown Rx Active Medications: Generic Name Dose Route Start Last Admin Trade Name Freq PRN Reason Stop Dose Admin Acetaminophen 650 mg 05/03/19 14:08 Tylenol PO Q4H PRN Pain MILD(1-3)/Fever >100.5/BECERRA Atorvastatin Calcium 10 mg 05/04/19 22:00 05/08/19 22:13 Atorvastatin PO 10 mg QHS JONNATHAN Administration Bupropion HCl 150 mg 05/04/19 10:00 05/08/19 22:12 Wellbutrin Sr PO 150 mg BID JONNATHAN Administration Carbidopa/Levodopa 2 each 05/05/19 22:00 05/08/19 22:17 Sinemet PO 2 each QHS JONNATHAN Administration Cholestyramine Resin 4 gm 05/04/19 12:00 05/09/19 02:40 Questran PO 4 gm 0000,1200 JONNATHAN Administration Clonazepam 0.25 mg 05/05/19 14:00 05/08/19 11:10 Klonopin PO 0.25 mg DAILY JONNATHAN Administration Clonidine HCl 0.1 mg 05/04/19 09:18 05/04/19 09:28 Catapres PO 0.1 mg Q4HR PRN Administration Hypertension Dextrose 50 ml 05/03/19 14:08 D50w (25gm) Syringe IV Q30MIN PRN Hypoglycemia Protocol Diltiazem HCl 30 mg 05/04/19 10:00 05/09/19 05:55 Cardizem PO 30 mg Q6H JONNATHAN Administration Enoxaparin Sodium 30 mg 05/04/19 10:00 05/08/19 09:39 Enoxaparin SUB-Q 30 mg QDAY JONNATHAN Administration Gabapentin 200 mg 05/04/19 10:00 05/08/19 22:12 Gabapentin PO 200 mg BID JONNATHAN Administration Haloperidol Lactate 1 mg 05/05/19 16:25 05/09/19 03:23 Haldol IM 1 mg Q6H PRN Administration Agitation Cefepime HCl 2 gm in 100 mls @ 200 mls/hr 05/04/19 10:00 05/08/19 11:10 Cefepime/Ns 2 Gm/100 Ml IV 05/10/19 10:29 200 mls/hr Q24HR JONNATHAN Administration Protocol Sodium Chloride 1,000 mls @ 75 mls/hr 05/07/19 13:00 05/08/19 19:40 Nacl 0.9% 1000 Ml IV 75 mls/hr DIRECT JONNATHAN Administration Insulin Human Regular 0 units 05/03/19 16:30 05/09/19 08:34 Humulin R SUB-Q Not Given ACHS JONNATHAN Protocol Levothyroxine Sodium 125 mcg 05/05/19 06:00 05/09/19 05:56 Synthroid PO 125 mcg DAILY@0600 JONNATHAN Administration Magnesium Oxide 400 mg 05/05/19 22:00 05/08/19 22:13 Mag-Ox PO 400 mg QHS JONNATHAN Administration Multivitamins/Minerals 1 each 05/04/19 10:00 05/08/19 09:40 Theragran-M Tab PO 1 each QDAY JONNATHAN Administration Ondansetron HCl 4 mg 05/03/19 14:08 Zofran IV Q8H PRN Nausea And Vomiting Oxybutynin Chloride 5 mg 05/04/19 14:00 05/08/19 19:40 Ditropan PO 5 mg TID JONNATHAN Administration Pantoprazole Sodium 40 mg 05/04/19 10:00 05/08/19 09:39 Protonix PO 40 mg QDAY JONNATHAN Administration Phenazopyridine HCl 100 mg 05/04/19 22:00 05/08/19 22:12 Pyridium PO 100 mg BID JONNATHAN Administration Quetiapine Fumarate 100 mg 05/08/19 10:00 05/08/19 11:11 Seroquel PO 100 mg DAILY JONNATHAN Administration Sodium Chloride 10 ml 05/03/19 22:00 05/08/19 22:13 Sodium Chloride Flush Syringe 10 Ml IV 10 ml BID JONNATHAN Administration Sodium Chloride 10 ml 05/03/19 14:08 Sodium Chloride Flush Syringe 10 Ml IV PRN PRN LINE FLUSH Tamsulosin HCl 0.4 mg 05/04/19 22:00 05/08/19 22:13 Flomax PO 0.4 mg QHS JONNATHAN Administration Venlafaxine HCl 150 mg 05/04/19 10:00 05/08/19 09:39 Effexor Xr PO 150 mg QDAY JONNATHAN Administration
--- NOTE | 2019-05-09 11:44 | Progress Note ---
Subjective - Reason for Consult Consult date: 05/09/19 Reason for consult: psychiatric assessment - Chief Complaint Chief complaint: During my interview this morning, the patient was lying in bed [id number]. the patient is calm and cooperative. The patient reports suicidal ideation with no plan the patient denies visual but reports auditory hallucination, she states, "I am hearing voices but I can,t tell you now what they are saying it is low". The patient report that she has been eating only if the food is good , she reports sleeping well. ROS: Constitutional: Negative for weight loss ENT: Negative for stridor Respiratory: Negative for cough or hemoptysis All other systems reviewed and are negative MENTAL STATUS General Appearance and Behavior: age appropriate, good eye contact, cooperative with questioning and polite Cooperation: Cooperative Psychomotor Behavior: within normal limits Mood: "ok" Affect and affective range: Congruent with stated mood Thought Process: Impaired Speech: Normal tone and pace Suicidal Ideation: yes Homicidal Ideation: Denies HI Hallucinations: Auditory Delusions: None elicited Insight and Judgment: Limited Memory: forgetful Orientation: Confused RECOMMENDATIONS MEDICATIONS: continue medication on chart Risks, benefits and alternatives of medications discussed with the patient, questions answered and consent obtained from patient. PSYCHOTHERAPY: Supportive psychotherapy provided MEDICAL: Per primary team DELIRIUM PRECAUTIONS: Please re-orient patient frequently, keep lights on during the day, and minimize benzodiazepines and opiates as these medications could worsen patient's confusion. RADIATION ONCOLOGY NURSE: Defer to primary DISPOSITION: The patient meet the requirement for acute inpatient treatment. The patient can transfer to the 5th floor when medically cleared FOLLOW-UP: Will continue to follow until transferred. Mental Status Exam - Vital signs Last Vital Signs Temp 97.5 F L 05/09/19 05:47 Pulse 83 05/09/19 05:55 Resp 20 05/09/19 05:47 BP 157/70 05/09/19 05:55 Pulse Ox 96 05/09/19 05:47
[2019-05-09] MEDS: ENOXAPARIN 30 MG/0.3 ML INJ SUB-Q SCH (12:04)
[2019-05-09] MEDS: GABAPENTIN 100 MG CAP PO SCH (12:05)
[2019-05-09] MEDS: PANTOPRAZOLE 40 MG TAB PO SCH (12:05)
[2019-05-09] MEDS: clonazePAM 0.5 MG TAB PO SCH (12:05)
[2019-05-09] MEDS: MULTIVITAMINS,THER W-MINERALS TAB PO SCH (12:07)
[2019-05-09] MEDS: PHENAZOPYRIDINE 100 MG TAB PO SCH (12:07)
[2019-05-09] MEDS: QUEtiapine 100 MG TAB PO SCH (12:08)
[2019-05-09] MEDS: buPROPion SR 150 MG TAB PO SCH (12:09)
[2019-05-09] MEDS: VENLAFAXINE XR 75 MG CAP PO SCH (12:11)
[2019-05-09] MEDS: CEFEPIME/NS 2 GM/100 ML 2 GM/100 ML BAG IV SCH (12:14)
== END 2019-05-09 14:45 | DRG 871 ==
LOC: UNDOADMIN 10:04 → 4A 10:04 → 3A 11:57
PROVIDERS: ADMIT Hospitalist; ATTEND Internal Medicine
DX: A41.51 Sepsis due to Escherichia coli [E. coli] (principal); J96.01 Acute respiratory failure with hypoxia; I21.9 Acute myocardial infarction, unspecified; N39.0 Urinary tract infection, site not specified; N17.9 Acute kidney failure, unspecified; E87.2 Acidosis; R45.851 Suicidal ideations; N18.9 Chronic kidney disease, unspecified; F41.8 Other specified anxiety disorders; G20 Parkinson's disease; I12.9 Hypertensive chronic kidney disease with stage 1 through stage 4 chronic kidney disease, or unspecified chronic kidney disease; E11.22 Type 2 diabetes mellitus with diabetic chronic kidney disease; I25.10 Atherosclerotic heart disease of native coronary artery without angina pectoris; E78.5 Hyperlipidemia, unspecified; E03.9 Hypothyroidism, unspecified; D64.9 Anemia, unspecified; E86.9 Volume depletion, unspecified; Z90.710 Acquired absence of both cervix and uterus; Z90.5 Acquired absence of kidney; Z88.8 Allergy status to other drugs, medicaments and biological substances; Z85.50 Personal history of malignant neoplasm of unspecified urinary tract organ; Z79.4 Long term (current) use of insulin
CPT/HCPCS: 36415; 71045; 74176; 80048; 82962; 83735; 85007; 85025; 86850; 86870; 86900; 86901; 87040; 87086; 94760; G0378; A9270-GY; J0692; J1630; J1650; J7030

== ENCOUNTER 2019-05-09 11:53 | Inpatient (IN) | payer MEDICARE ==
[2019-05-09] MEDS ORDERED: HALOPERIDOL 5 MG TAB PO PRN (15:01)
[2019-05-09] MEDS ORDERED: NON-FORMULARY EACH (Melatonin 5 MG) PO PRN (15:01)
[2019-05-09] MEDS ORDERED: MELATONIN 5 MG TAB PO PRN (15:58)
[2019-05-09] MEDS: OXYBUTYNIN 5 MG TAB PO SCH (20:24)
[2019-05-09 20:46] LABS: Hematocrit 28.1 % (30.3-42.9); Hemoglobin 9.3 gm/dl (10.1-14.3); Mean Corpuscular HGB Conc 33 % (30-34); Mean Corpuscular Volume 97 fl (79-97); Platelet Count 241 K/mm3 (140-440); Red Blood Count 2.91 M/mm3 (3.65-5.03); Red Cell Distribution Width 18.5 % (13.2-15.2)
[2019-05-09 20:47] LABS: Eosinophils # (Auto) 0.1 K/mm3 (0.0-0.4); Eosinophils % (Auto) 4.2 % (0.0-4.3); Lymphocytes # (Auto) 0.4 K/mm3 (1.2-5.4); Lymphocytes % (Auto) 15.4 % (13.4-35.0); Monocytes # (Auto) 0.5 K/mm3 (0.0-0.8); Monocytes % (Auto) 15.7 % (0.0-7.3)
[2019-05-09] MEDS: dilTIAZem 30 MG TAB PO SCH (20:54)
[2019-05-09 20:57] LABS: Albumin 3.4 g/dL (3.9-5); Calcium 8.8 mg/dL (8.4-10.2); Chol/HDL Ratio 2.64 %
[2019-05-09] MEDS: OMEGA-3 FATTY ACIDS/FISH OIL 1 GRAM CAP PO SCH (21:21)
[2019-05-09] MEDS: GABAPENTIN 100 MG CAP PO SCH (21:21)
[2019-05-09] MEDS: buPROPion SR 150 MG TAB PO SCH (21:22)
[2019-05-09] MEDS ORDERED: TAMSULOSIN 0.4 MG CAP PO SCH (22:00)
[2019-05-09] MEDS ORDERED: MAGNESIUM AMINO ACID CHELATE PO SCH (22:00)
[2019-05-09] MEDS ORDERED: NON-FORMULARY EACH (Flomax 0.4 MG) PO SCH (22:00)
[2019-05-09] MEDS ORDERED: LIPITOR 10 MG PO SCH (22:00)
[2019-05-09] MEDS ORDERED: FISH OIL 2000 MG PO SCH (22:00)
[2019-05-10] MEDS: dilTIAZem 30 MG TAB PO SCH ×3 (01:22→12:47)
[2019-05-10] MEDS ORDERED: LEVOTHYROXINE 125 MCG TAB PO SCH (06:00)
[2019-05-10 06:13] VITALS: BP 142/53
[2019-05-10] MEDS: buPROPion SR 150 MG TAB PO SCH (09:37)
[2019-05-10] MEDS: OXYBUTYNIN 5 MG TAB PO SCH (09:37)
[2019-05-10] MEDS: GABAPENTIN 100 MG CAP PO SCH (09:38)
--- NOTE | 2019-05-10 09:40 | History and Physical Report ---
GP History & Physical - History of Present Illness Date of admission: 05/09/19 Date of Examination: 05/10/19 Reason for Admission: Danger to self, Impaired reality testing, Severe anxiety/depression, Unable to care for self History of Present Illness: ms mitchell is a 83 year old female. The patient is sitting in the dining room the patient is alert oriented x3, she is dressed appropriately for the occasion, she is calm cooperative and smiles when approached. The patient is able to make her needs known. When asked if she knew why she was here the patient stated, "I think because I am doing better, I was somewhere else yesterday and then moved to this area". The patient denies suicidal or homicidal ideation she states, "why would I hurt myself", the patient contract for safety. The patient denies visual or auditory hallucinations. The patient reports that she has no depressive symptoms. Cognition appears grossly intact with appropriate attention span and concentration and average fund of knowledge judgment appears fair insight appears fair the patient is able to articulate needs. The patient is found to be stable and has control of behavior. PAST PSYCHIATRIC HISTORY: Diagnoses: Major depressive disorder Suicide attempts or Self-harm behavior: Yes Prior psychiatric hospitalizations yes Substance Abuse history: Denies Previous psychiatric medications tried: Yes Outpatient treatment: Yes PAST MEDICAL HISTORY: Diabetes, kidney disease, hypothyroidism, Parkinson's, CAD Family Psychiatric History None reported or documented SOCIAL HISTORY Marital Status: Living Arrangements: Daughter Employment Status: Retired Access to guns/weapons: Denies Education: 12th grade History of Abuse: Denies Legal History: Denies ROS: Constitutional: Negative for weight loss ENT: Negative for stridor Respiratory: Negative for cough or hemoptysis All other systems reviewed and are negative MENTAL STATUS General Appearance and Behavior: age appropriate, good eye contact, cooperative with questioning and polite Cooperation: Cooperative Psychomotor Behavior: within normal limits Mood: OK Affect and affective range: Congruent with stated mood Thought Process: Fluent/Logical and Goal-directed Thought Content: Within reality Speech: Normal volume and Regular rate and rhythm Intellectual Functioning Average Suicidal Ideation: Denies SI Homicidal Ideation: Denies HI Impulse Control: intact Insight and Judgment: normal insight and judgment Memory: forgetful Attention: Normal Orientation: alert and orientedx3 Treatment Plan Due to the psychiatric conditions and treatment listed in the Assessment and Plan - the patient can be discharge home Will continue q15 min safety checks. Will encourage the use of environmental modifications and non-pharmacologic approaches for the management of behavioral and psychological symptoms. Medication adjustment made today none Will continue current psych medications Monitor for medication side effects. The patient will continue on medications for physical illnesses, and Hospitalist will closely monitor these Monitor patient's mood, sleep, appetite, and behavior closely. Encourage patient to participate in individual and group therapeutic sessions on the carpio. Will provide a safe and therapeutic environment for patient. Estimated length of stay days This is an acknowledgement statement that DAJUAN MITCHELL is a 83 year old F who requires inpatient psychiatric admission for treatment which could reasonably be expected to improve the patient's condition for Estimated period of time patient will need to remain in the hospital: [ 1] Plan for post-hospital care: [outpatient ] Legal Status: Voluntary Reaction to Hospitalization: Accepting Medications and Allergies Allergies Allergy/AdvReac Type Severity Reaction Status Date / Time risperidone AdvReac Unknown Verified 05/02/19 17:43 Home Medications Medication Instructions Recorded Confirmed Last Taken Type Carbidopa/Levodopa ER 50-200 50 - 200 mg PO BID 04/29/19 05/09/19 Unknown History [Sinemet ER 50/200] Cholestyramine (with Sugar) 4 gm PO BID 04/29/19 05/09/19 Unknown History [Cholestyramine Packet] Flomax 0.4 mg PO HS 04/29/19 05/09/19 Unknown History Gabapentin 200 mg PO BID 04/29/19 05/09/19 Unknown History Magnesium Amino Acid Chelate 250 mg PO HS 04/29/19 05/09/19 Unknown History [Magnesium] Multivitamin [One-Daily 1 each PO DAILY 04/29/19 05/09/19 Unknown History Multi-Vitamin] Oxybutynin [Ditropan] 5 mg PO TID 04/29/19 05/09/19 Unknown History Pantoprazole [Protonix TAB] 40 mg PO QDAY 04/29/19 05/09/19 Unknown History Synthroid 125 mcg PO QAM 04/29/19 05/09/19 Unknown History Venlafaxine HCl [Effexor Xr] 150 mg PO DAILY 04/29/19 05/09/19 Unknown History buPROPion SR [Wellbutrin SR] 150 mg PO BID 04/29/19 05/09/19 Unknown History clonazePAM [KlonoPIN] 0.25 mg PO BID 04/29/19 05/09/19 Unknown History dilTIAZem [Cardizem] 30 mg PO Q6HR 04/29/19 05/09/19 Unknown History Fish Oil 2,000 mg PO BID 05/03/19 05/09/19 Unknown History Lipitor 10 mg PO QHS 05/03/19 05/09/19 Unknown History Melatonin 5 mg PO QHS PRN 05/03/19 05/09/19 Unknown History Phenazopyridine [Pyridium] 100 mg PO BID 05/03/19 05/09/19 Unknown History SEROquel 50 mg PO DAILY 05/03/19 05/09/19 Unknown History cloNIDine 0.1 mg PO Q4HR PRN 05/03/19 05/09/19 Unknown History haloperidoL [Haldol] 5 mg PO Q6H PRN 05/03/19 05/09/19 Unknown History cefUROXime [Ceftin] 500 mg PO Q12H 2 Days #4 tablet 05/09/19 05/09/19 Unknown Rx Active Meds: Active Medications Atorvastatin Calcium (Atorvastatin) 10 mg PO QHS [facility] Last Admin: 05/09/19 21:22 Dose: 10 mg Documented by: Bupropion HCl (Wellbutrin Sr) 150 mg PO BID [facility] Last Admin: 05/09/19 21:22 Dose: 150 mg Documented by: Clonazepam (Klonopin) 0.25 mg PO DAILY [facility] Diltiazem HCl (Cardizem) 30 mg PO Q6HR [facility] Last Admin: 05/10/19 06:13 Dose: 30 mg Documented by: Fish Oil (Fish Oil) 2,000 mg PO BID [facility] Last Admin: 05/09/19 21:21 Dose: 2,000 mg Documented by: Gabapentin (Gabapentin) 200 mg PO BID [facility] Last Admin: 05/09/19 21:21 Dose: 200 mg Documented by: Haloperidol (Haldol) 5 mg PO Q6H PRN PRN Reason: Agitation Levothyroxine Sodium (Synthroid) 125 mcg PO DAILY@0600 [facility] Last Admin: 05/10/19 06:13 Dose: 125 mcg Documented by: Melatonin (Melatonin) 5 mg PO QHS PRN PRN Reason: Sleep Last Admin: 05/09/19 21:21 Dose: 5 mg Documented by: Miscellaneous Medication (Magnesium Amino Acid Chelate [Magnesium]) 250 mg PO HS [facility] Multivitamins (Theragran Tab) 1 each PO DAILY [facility] Oxybutynin Chloride (Ditropan) 5 mg PO TID [facility] Last Admin: 05/09/19 20:24 Dose: 5 mg Documented by: Pantoprazole Sodium (Protonix) 40 mg PO QDAY [facility] Quetiapine Fumarate (Seroquel) 50 mg PO QDAY [facility] Tamsulosin HCl (Flomax) 0.4 mg PO QHS [facility] Last Admin: 05/09/19 21:22 Dose: 0.4 mg Documented by: Venlafaxine HCl (Effexor Xr) 150 mg PO QDAY [facility] Results - Results Labs/Vitals: Laboratory Last Values WBC 2.9 K/mm3 (4.5-11.0) L 05/09/19 19:13 RBC 2.91 M/mm3 (3.65-5.03) L 05/09/19 19:13 Hgb 9.3 gm/dl (10.1-14.3) L 05/09/19 19:13 Hct 28.1 % (30.3-42.9) L 05/09/19 19:13 MCV 97 fl (79-97) 05/09/19 19:13 MCH 32 pg (28-32) 05/09/19 19:13 MCHC 33 % (30-34) 05/09/19 19:13 RDW 18.5 % (13.2-15.2) H 05/09/19 19:13 Plt Count 241 K/mm3 (140-440) 05/09/19 19:13 Lymph % (Auto) 15.4 % (13.4-35.0) 05/09/19 19:13 [place] % (Auto) 15.7 % (0.0-7.3) H 05/09/19 19:13 Eos % (Auto) 4.2 % (0.0-4.3) 05/09/19 19:13 Baso % (Auto) 1.0 % (0.0-1.8) 05/09/19 19:13 Lymph # 0.4 K/mm3 (1.2-5.4) L 05/09/19 19:13 [place] # 0.5 K/mm3 (0.0-0.8) 05/09/19 19:13 Eos # 0.1 K/mm3 (0.0-0.4) 05/09/19 19:13 Baso # 0.0 K/mm3 (0.0-0.1) 05/09/19 19:13 Seg Neutrophils % 63.7 % (40.0-70.0) 05/09/19 19:13 Seg Neutrophils # 1.9 K/mm3 (1.8-7.7) 05/09/19 19:13 Sodium 139 mmol/L (137-145) 05/09/19 19:13 Potassium 4.4 mmol/L (3.6-5.0) 05/09/19 19:13 Chloride 107.3 mmol/L (98-107) H 05/09/19 19:13 Carbon Dioxide 19 mmol/L (22-30) L 05/09/19 19:13 Anion Gap 17 mmol/L 05/09/19 19:13 BUN 21 mg/dL (7-17) H 05/09/19 19:13 Creatinine 1.8 mg/dL (0.7-1.2) H 05/09/19 19:13 Estimated GFR 27 ml/min 05/09/19 19:13 BUN/Creatinine Ratio 12 % 05/09/19 19:13 Glucose 138 mg/dL (65-100) H 05/09/19 19:13 POC Glucose 97 (70-105) 05/10/19 06:38 Calcium 8.8 mg/dL (8.4-10.2) 05/09/19 19:13 Total Bilirubin 0.20 mg/dL (0.1-1.2) 05/09/19 19:13 AST 19 units/L (5-40) 05/09/19 19:13 ALT 6 units/L (7-56) L 05/09/19 19:13 Alkaline Phosphatase 97 units/L (35-129) 05/09/19 19:13 Total Protein 6.1 g/dL (6.3-8.2) L 05/09/19 19:13 Albumin 3.4 g/dL (3.9-5) L 05/09/19 19:13 Albumin/Globulin Ratio 1.3 % 05/09/19 19:13 Triglycerides 187 mg/dL (2-149) H 05/09/19 19:13 Cholesterol 119 mg/dL (50-199) 05/09/19 19:13 LDL Cholesterol Direct 51 mg/dL (50-130) 05/09/19 19:13 HDL Cholesterol 45 mg/dL (40-59) 05/09/19 19:13 Cholesterol/HDL Ratio 2.64 % 05/09/19 19:13 TSH 73.960 mlU/mL (0.270-4.200) H 05/09/19 19:13 Valproic Acid < 2.8 ug/mL (50-100) L 05/09/19 19:13 Last Vital Signs Temp 97.5 F L 05/09/19 22:00 Pulse 91 H 05/10/19 06:13 Resp 18 05/09/19 22:00 BP 142/53 05/10/19 06:13 Pulse Ox 97 05/09/19 22:00 Physical Examination - Constitutional Vitals: Vital Signs Temp Pulse Resp BP Pulse Ox 97.5 F L 91 H 18 142/53 97 05/09/19 22:00 05/10/19 06:13 05/09/19 22:00 05/10/19 06:13 05/09/19 22:00 Temperature -Last 24 Hours Temperature 97.5 F Mental Status Exam - Vital signs Last Vital Signs Temp 97.5 F L 05/09/19 22:00 Pulse 91 H 05/10/19 06:13 Resp 18 05/09/19 22:00 BP 142/53 05/10/19 06:13 Pulse Ox 97 05/09/19 22:00 Physician Certification - Certification Statement Physician Certification Statement: This is an acknowledgement statement that DAJUAN MITCHELL is a 83 year old F who requires inpatient psychiatric admission for treatment which could reasonably be expected to improve the patient's condition for Estimated period of time patient will need to remain in the hospital: [ 1] Plan for post-hospital care: [outpatient ]
[2019-05-10] MEDS: OMEGA-3 FATTY ACIDS/FISH OIL 1 GRAM CAP PO SCH (09:44)
[2019-05-10] MEDS ORDERED: PANTOPRAZOLE 40 MG TAB PO SCH (10:00)
[2019-05-10] MEDS ORDERED: NON-FORMULARY EACH (Multivitamin [One-Daily Multi-Vitamin] 1 EACH) PO SCH (10:00)
[2019-05-10] MEDS ORDERED: clonazePAM 0.5 MG TAB PO SCH (10:00)
[2019-05-10] MEDS ORDERED: VENLAFAXINE XR 75 MG CAP PO SCH (10:00)
[2019-05-10] MEDS ORDERED: SEROQUEL 50 MG PO SCH (10:00)
[2019-05-10] MEDS ORDERED: MULTIVITAMINS ,THERAPEUTIC TAB PO SCH (10:00)
[2019-05-10] MEDS ORDERED: QUEtiapine 25 MG TAB PO SCH (10:00)
[2019-05-10] MEDS ORDERED: VENLAFAXINE HCL 150 MG PO SCH (10:00)
[2019-05-10] MEDS ORDERED: SYNTHROID 125 MCG PO SCH (10:00)
--- NOTE | 2019-05-10 10:10 | Discharge Summary ---
Providers - Providers Date of Admission: 05/09/19 15:31 Date of discharge: 05/10/19 Attending physician: LIMA FERNÁNDEZ MD 05/09/19 14:47 Consult to Physician [CONS] Routine Comment: Consulting Provider: LATESHA POSADA Physician Instructions: Reason For Exam: Medical management of [facility] psych patient Primary care physician: LIMA FERNÁNDEZ MD Hospitalization Condition: Stable Disposition: DC-01 TO HOME OR SELFCARE Allergies/Adverse Reactions: Allergies risperidone Adverse Reaction (Verified 05/02/19 17:43) Unknown Vital Signs: Last Vital Signs Temp 97.5 F L 05/09/19 22:00 Pulse 91 H 05/10/19 06:13 Resp 18 05/09/19 22:00 BP 142/53 05/10/19 06:13 Pulse Ox 97 05/09/19 22:00 Last Lab: Laboratory Last Values WBC 2.9 K/mm3 (4.5-11.0) L 05/09/19 19:13 RBC 2.91 M/mm3 (3.65-5.03) L 05/09/19 19:13 Hgb 9.3 gm/dl (10.1-14.3) L 05/09/19 19:13 Hct 28.1 % (30.3-42.9) L 05/09/19 19:13 MCV 97 fl (79-97) 05/09/19 19:13 MCH 32 pg (28-32) 05/09/19 19:13 MCHC 33 % (30-34) 05/09/19 19:13 RDW 18.5 % (13.2-15.2) H 05/09/19 19:13 Plt Count 241 K/mm3 (140-440) 05/09/19 19:13 Lymph % (Auto) 15.4 % (13.4-35.0) 05/09/19 19:13 [place] % (Auto) 15.7 % (0.0-7.3) H 05/09/19 19:13 Eos % (Auto) 4.2 % (0.0-4.3) 05/09/19 19:13 Baso % (Auto) 1.0 % (0.0-1.8) 05/09/19 19:13 Lymph # 0.4 K/mm3 (1.2-5.4) L 05/09/19 19:13 [place] # 0.5 K/mm3 (0.0-0.8) 05/09/19 19:13 Eos # 0.1 K/mm3 (0.0-0.4) 05/09/19 19:13 Baso # 0.0 K/mm3 (0.0-0.1) 05/09/19 19:13 Seg Neutrophils % 63.7 % (40.0-70.0) 05/09/19 19:13 Seg Neutrophils # 1.9 K/mm3 (1.8-7.7) 05/09/19 19:13 Sodium 139 mmol/L (137-145) 05/09/19 19:13 Potassium 4.4 mmol/L (3.6-5.0) 05/09/19 19:13 Chloride 107.3 mmol/L (98-107) H 05/09/19 19:13 Carbon Dioxide 19 mmol/L (22-30) L 05/09/19 19:13 Anion Gap 17 mmol/L 05/09/19 19:13 BUN 21 mg/dL (7-17) H 05/09/19 19:13 Creatinine 1.8 mg/dL (0.7-1.2) H 05/09/19 19:13 Estimated GFR 27 ml/min 05/09/19 19:13 BUN/Creatinine Ratio 12 % 05/09/19 19:13 Glucose 138 mg/dL (65-100) H 05/09/19 19:13 POC Glucose 97 (70-105) 05/10/19 06:38 Calcium 8.8 mg/dL (8.4-10.2) 05/09/19 19:13 Total Bilirubin 0.20 mg/dL (0.1-1.2) 05/09/19 19:13 AST 19 units/L (5-40) 05/09/19 19:13 ALT 6 units/L (7-56) L 05/09/19 19:13 Alkaline Phosphatase 97 units/L (35-129) 05/09/19 19:13 Total Protein 6.1 g/dL (6.3-8.2) L 05/09/19 19:13 Albumin 3.4 g/dL (3.9-5) L 05/09/19 19:13 Albumin/Globulin Ratio 1.3 % 05/09/19 19:13 Triglycerides 187 mg/dL (2-149) H 05/09/19 19:13 Cholesterol 119 mg/dL (50-199) 05/09/19 19:13 LDL Cholesterol Direct 51 mg/dL (50-130) 05/09/19 19:13 HDL Cholesterol 45 mg/dL (40-59) 05/09/19 19:13 Cholesterol/HDL Ratio 2.64 % 05/09/19 19:13 TSH 73.960 mlU/mL (0.270-4.200) H 05/09/19 19:13 Valproic Acid < 2.8 ug/mL (50-100) L 05/09/19 19:13 Core Measure Documentation - Palliative Care Palliative Care/ Comfort Measures: Not Applicable - Core Measures Any of the following diagnoses?: none Exam - Constitutional Vitals: Temp Pulse Resp BP Pulse Ox 97.5 F L 91 H 18 142/53 97 05/09/19 22:00 05/10/19 06:13 05/09/19 22:00 05/10/19 06:13 05/09/19 22:00 General appearance: Present: no acute distress, well-nourished - EENT Eyes: Present: PERRL, EOM intact ENT: hearing intact, clear oral mucosa - Neck Neck: Present: supple, normal ROM - Respiratory Respiratory effort: normal - Abdominal Female genitourinary: Present: normal - Integumentary Integumentary: Present: clear, warm, dry Plan Care Plan Goals: Maintain good and stable mental health Plan of Treatment: The patient should be complaint with medications, not use drugs, and not drink alcohol. The patient understands that if suicidal, homicidal or endangering feelings arise he should seek assistance including but not limited to calling 911, the crisis hotline, and the emergency room. Follow up with outpatient psychiatry and primary doctor in 7 to 14 days Health Concerns: Acute kidney injury, diabetes, Parkinson, [place], hypothyroidism, urethral cancer Follow up with: LIMA FERNÁNDEZ MD [Primary Care Provider] - 7 Days Prescriptions: AtorvaSTATin 10 mg PO QHS #30 tablet Venlafaxine Xr [Effexor XR] 150 mg PO QDAY #30 capsule [place]-3 Fatty Acids/Fish Oil [Fish Oil] 2,000 mg PO BID #60 capsule clonazePAM [KlonoPIN] 0.25 mg PO BID #30 QUEtiapine [SEROquel] 50 mg PO QDAY #30 tablet buPROPion SR [Wellbutrin SR] 150 mg PO BID #60
== END 2019-05-10 12:59 | disposition home or self-care (01) | DRG 885 ==
LOC: UNDOADMIN 11:53 → 3A 11:53 → 5A 15:31
PROVIDERS: ADMIT Psychiatry & Neurology Psychiatry; ATTEND Psychiatry & Neurology Psychiatry
DX: F32.2 Major depressive disorder, single episode, severe without psychotic features (principal); F41.9 Anxiety disorder, unspecified; E11.9 Type 2 diabetes mellitus without complications; E03.9 Hypothyroidism, unspecified; I25.10 Atherosclerotic heart disease of native coronary artery without angina pectoris; G20 Parkinson's disease
CPT/HCPCS: 36415; 80053; 80061; 80164; 82962; 84443; 85025; G0378; A9270-GY